=== PATIENT | male | born 1955 | race Caucasian/White ===

== ENCOUNTER 2019-08-23 09:20 | Outpatient (CLI) | payer BC, SELFPAY ==
--- NOTE | ~2019-08-23 | MR_ITS ---
EXAMINATION: MR cervical spine wo con DATE: 08/23/2019 10:48 INDICATION: Cervical radiculopathy. Bilateral shoulder pain and weakness. TECHNIQUE: Magnetic resonance imaging (MRI) of the cervical spine was performed without intravenous c ontrast. Sequences included sagittal T2-weighted FSE, sagittal T2-weighted FS FSE, sagittal T1-weight ed FSE, axial MERGE, and axial T2-weighted FSE. COMPARISON: None FINDINGS: There is 2 mm anterolisthesis of C5 on C6. Vertebral body heights and intervertebral disc h eights are normal. The spinal cord signal intensity is normal. The following disc levels are specific ally discussed: C2-C3: The disc does not extend beyond the endplate margin. There is no uncovertebral joint osteoarth ritis. There is moderate right and mild left facet joint osteoarthritis. There is no neural foraminal stenosis. There is no central canal stenosis. C3-C4: The disc does not extend beyond the endplate margin. There is no uncovertebral joint osteoarth ritis. There is mild bilateral facet joint osteoarthritis. There is no neural foraminal stenosis. The re is no central canal stenosis. C4-C5: The disc does not extend beyond the endplate margin. There is no uncovertebral joint osteoarth ritis. There is no facet joint osteoarthritis. There is no neural foraminal stenosis. There is no jose tral canal stenosis. C5-C6: The disc is bulging. There is moderate left uncovertebral joint osteoarthritis. There is mild bilateral facet joint osteoarthritis. There is mild left neural foraminal stenosis. There is mild jose tral canal stenosis. C6-C7: The disc does not extend beyond the endplate margin. There is no uncovertebral joint osteoarth ritis. There is mild left facet joint osteoarthritis. There is no neural foraminal stenosis. There is no central canal stenosis. C7-T1: The disc does not extend beyond the endplate margin. There is no uncovertebral joint osteoarth ritis. There is mild bilateral facet joint osteoarthritis. There is no neural foraminal stenosis. The re is no central canal stenosis. IMPRESSION: 1. Mild cervical spondylosis. Reviewed, dictated and finalized at location A.
--- NOTE | ~2019-08-23 | XR_ITS ---
EXAMINATION: XR finger 1st LT min 2V INDICATION: Left first finger pain TECHNIQUE: Three views of the left first finger are obtained. COMPARISON: None available FINDINGS: There is moderate to severe osteoarthritis at the first carpometacarpal joint. Mild osteoar thritis is noted in the visualized metacarpophalangeal joint and the triscaphe joint. There is no fra cture. The soft tissues are unremarkable. IMPRESSION: 1. Polyarticular osteoarthritis, worst at the first carpometacarpal joint. Reviewed, dictated and finalized at location A.
== END 2019-08-23 09:21 | disposition home or self-care (01) ==
PROVIDERS: Visit Provider Physician Assistant
DX: M47.22 Other spondylosis with radiculopathy, cervical region (principal); M18.12 Unilateral primary osteoarthritis of first carpometacarpal joint, left hand
CPT/HCPCS: 72141; 73140

== ENCOUNTER → 2019-12-11 13:14 | Outpatient (CLI) | payer BC, SELFPAY ==
--- NOTE | ~2019-12-11 | US_ITS ---
EXAMINATION: US scrotum doppler EXAM DATE: 12/11/2019 13:58 INDICATION: Blood chemistry abnormality, decreased testosterone. TECHNIQUE: Multiple grayscale and Doppler images of the testicles and scrotum were obtained bilateral ly. There is no prior study for comparison. FINDINGS: Right testicle measures 3.9 x 2.0 x 2.8 cm and is morphologically normal. Low resistance Doppler nicola w confirmed. The epididymis is unremarkable. There is a small varicocele. Left testicle measures 3.5 x 2.3 x 2.6 cm and is morphologically normal. Low resistance Doppler flow confirmed. The epididymis is unremarkable. There is no hydrocele or varicocele. IMPRESSION: 1. Small right varicocele. Reviewed, dictated and finalized at location A. IMPRESSION: 1. Small right varicocele.
== END ==
PROVIDERS: PCP Physician Assistant; Visit Provider Internal Medicine Endocrinology, Diabetes & Metabolism
DX: R79.89 Other specified abnormal findings of blood chemistry (principal); I86.1 Scrotal varices
CPT/HCPCS: 76870; 93976

== ENCOUNTER → 2019-12-11 13:17 | Outpatient (CLI) | payer BC, SELFPAY ==
--- NOTE | ~2019-12-11 | MR_ITS ---
EXAMINATION: MR thoracic spine wo con EXAM DATE: 12/11/2019 15:04 INDICATION: Intermittent mid back pain. TECHNIQUE: Multi-sequential, multiplanar MR images of the thoracic spine were obtained without contra st. Sagittal T1, T2, T2 fat saturation, axial T2 weighted images reviewed. There is no prior study for comparison. FINDINGS: The vertebral bodies are aligned in the AP dimension. There is mild to moderate diffuse tho racic disc disease. The vertebral body heights are relatively well-maintained. There are no focal mar row signal abnormalities suspicious for malignancy or acute fracture. The spinal cord signal intensit y and intrinsic morphology is normal. No central canal stenosis. There is moderate right neural fora cuate stenosis at T3-4 and T4-5, the most narrowed levels. Mild to moderate facet arthropathy. Parasp inal soft tissue is unremarkable. IMPRESSION: 1. Mild to moderate thoracic spondylosis. Reviewed, dictated and finalized at location A.
== END ==
PROVIDERS: PCP Physician Assistant; Visit Provider Physician Assistant
DX: M48.10 Ankylosing hyperostosis [Forestier], site unspecified (principal); M47.894 Other spondylosis, thoracic region
CPT/HCPCS: 72146

== ENCOUNTER 2020-03-18 12:36 | Outpatient (CLI) | payer BC, MEDICARE, SELFPAY ==
--- NOTE | ~2020-03-18 | XR_ITS ---
EXAMINATION: XR shoulder LT min 2V EXAM DATE: 03/18/2020 13:04 INDICATION: No known recent injury provided at this time. Pain of the left shoulder. TECHNIQUE: The following left shoulder projections obtained: frontal projection with internal rotatio n, frontal projection with external rotation, Grashey, and axillary (4+ views). Correlation is made t o Contralateral shoulder same date FINDINGS: No evidence of left shoulder rotator cuff calcific tendinosis. There is mild glenohumeral, moderate acromioclavicular joint primary osteoarthritis. There are no acute fractures or dislocation s identified. There is no subcutaneous gas. The soft tissue is unremarkable. There are no radiopa que foreign bodies. IMPRESSION: Mild to moderate left shoulder osteoarthritis. Reviewed, dictated and finalized at location A. O MAN
--- NOTE | ~2020-03-18 | XR_ITS ---
EXAMINATION: XR shoulder RT min 2V EXAM DATE: 03/18/2020 13:04 INDICATION: Bilateral shoulder pain. No known injury. TECHNIQUE: The following right shoulder projections obtained: frontal projection with internal rotati on, frontal projection with external rotation, Grashey, and axillary (4+ views). There is no prior s tudy for comparison. FINDINGS: No evidence of right shoulder rotator cuff calcific tendinosis. There is mild glenohumer al, moderate acromioclavicular joint primary osteoarthritis. There are no acute fractures or dislocat ions identified. There is no subcutaneous gas. The soft tissue is unremarkable. There are no radi opaque foreign bodies. IMPRESSION: Mild to moderate right shoulder osteoarthritis. Reviewed, dictated and finalized at location A. 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
== END 2020-03-18 12:37 | disposition home or self-care (01) ==
PROVIDERS: PCP Physician Assistant; Visit Provider Physician Assistant
DX: M19.011 Primary osteoarthritis, right shoulder (principal); M19.012 Primary osteoarthritis, left shoulder
CPT/HCPCS: 73030

== ENCOUNTER → 2021-04-09 10:06 | Outpatient (CLI) | payer BC, SELFPAY ==
--- NOTE | ~2021-04-09 | XR_ITS ---
EXAMINATION: XR sinus min 3V EXAM DATE: 04/09/2021 10:57 INDICATION: Maxillary sinus pain. Right facial pain and soreness. TECHNIQUE: Frontal, Jamila's, lateral projections of the paranasal sinuses. There are no prior studies for comparison. FINDINGS: Sinuses appear well aerated but please note that mild mucoperiosteal thickening not general ly detectable by this modality. There are no acute fractures identified. Orbital rims are intact. IMPRESSION: Sinuses appear well-aerated. Reviewed, dictated and finalized at location A. STIGATIVE AGENT
== END ==
PROVIDERS: PCP Physician Assistant; Visit Provider Physician Assistant
DX: R51.9 Headache, unspecified (principal)
CPT/HCPCS: 70220

== ENCOUNTER → 2022-04-08 08:12 | Outpatient (CLI) | payer MEDICARE, SELFPAY ==
--- NOTE | ~2022-04-08 | MR_ITS ---
EXAMINATION: MR shoulder LT wo con DATE: 04/08/2022 09:38 INDICATION: generalized left shoulder pain down arm x2yrs, no trauma/ca . TECHNIQUE: Magnetic resonance imaging (MRI) of the left shoulder was performed without intravenous co ntrast. Sequences included axial PD-weighted FS FSE, coronal oblique PD-weighted FS FSE and T2-weight ed FS FSE, and sagittal oblique T2-weighted FS FSE and T1-weighted FSE. COMPARISON: X-ray left shoulder 03/18/2020. FINDINGS: Coracoacromial arch: Moderate AC joint hypertrophy. Mild anterolateral downsloping of the type II acromion. Minimal acromi al tip enthesopathy. No significant subacromial or subcoracoid narrowing. Rotator cuff: Superior cuff tendinopathy. 4 mm partial-thickness articular surface tear of the anterior and distal fibers of the supraspinatus. Large cystic collection at the superior margin of the supraspinatus, pos sibly within the supraspinatus fascia and in communication with intrasubstance fluid. Thinning and pa rtial undersurface tearing of the distal fibers of the infraspinatus. Intrasubstance fluid signal at the musculotendinous junction. Teres minor and subscapularis are intact. Biceps tendon and glenoid labrum: Long head of biceps tendon is torn. Degenerative signal change in the glenoid labrum. Tear of the ant erior inferior glenoid labrum. Linear abnormal signal in the posteroinferior labrum with as an associ ated para labral cyst Fluid: Moderate subacromial subdeltoid fluid. Bones/cartilage: Subcortical cystic changes in the superior glenoid and superolateral aspect of the humeral head. IMPRESSION: 1. Partial-thickness and intrasubstance type tears of the supraspinatus. 2. Partial-thickness and intrasubstance tears of the infraspinatus. 3. Long head of biceps tendon tear. 4. Tears of the anteroinferior and posterior inferior labrum. 5. Moderate subacromial subdeltoid bursitis. Reviewed, dictated and finalized at location K. GER [employer]
== END ==
PROVIDERS: PCP Physician Assistant; Visit Provider Physician Assistant
DX: M25.512 Pain in left shoulder (principal); M75.112 Incomplete rotator cuff tear or rupture of left shoulder, not specified as traumatic; S46.112A Strain of muscle, fascia and tendon of long head of biceps, left arm, initial encounter; S43.432A Superior glenoid labrum lesion of left shoulder, initial encounter; M75.52 Bursitis of left shoulder
CPT/HCPCS: 73221

== ENCOUNTER 2022-12-21 00:35 | Day surgery (SDC) | payer MEDICARE, SELFPAY ==
[2022-12-11 15:15] VITALS: BMI 35.6
--- NOTE | 2022-12-20 17:09 | PM.HPGS ---
History of Present Illness History of Present Illness Consent: Risks, benefits, and alternatives have been discussed and questions answered. Patient agrees to proceed with procedure. Chief complaint: GERD Narrative: Johan Ledezma is a 67 year old male Referred for investigation of persistent acid reflux symptoms. His symptoms are worse when laying down. He does take pantoprazole 40 mg twice a day. Review of Systems Review of Systems: All systems reviewed & are unremarkable except as noted in HPI and below PMFSH Past Medical History Medical History Frequent PVCs Obesity MARIUM on CPAP Surgical History Surgical History History of esophagogastroduodenoscopy (EGD) Social History Social History Smoking status: Never smoker Alcohol intake: current Substance use: never Substance use type: does not use Living arrangements: with family Spiritual care concerns: No Meds Home Medications and Allergies Home Medications Medication Instructions Recorded Confirmed Type ascorbic acid (vitamin C) 100 mg 100 mg PO DAILY 12/11/22 12/21/22 History tablet (Vitamin C) aspirin 81 mg tablet 81 mg PO DAILY 12/11/22 12/21/22 History citalopram 20 mg tablet 20 mg PO DAILY 12/11/22 12/21/22 History dapagliflozin propanediol 10 mg 10 mg PO DAILY 12/11/22 12/21/22 History tablet (Farxiga) ferrous sulfate 325 mg (65 mg 325 mg PO DAILY 12/11/22 12/21/22 History iron) tablet glimepiride 1 mg tablet 1 mg PO DAILY PRN Hyperglycemia 12/11/22 12/21/22 History levothyroxine 100 mcg tablet 100 mcg PO DAILY 12/11/22 12/21/22 History losartan 100 1 tablet PO DAILY 12/11/22 12/21/22 History mg-hydrochlorothiazide 25 mg tablet magnesium 100 mg tablet 100 mg PO DAILY 12/11/22 12/21/22 History metformin 750 mg tablet,extended 750 mg PO TID 12/11/22 12/21/22 History release 24 hr multivitamin 1 tablet PO DAILY 12/11/22 12/21/22 History omega-3 fatty acids 1,000 mg PO BID 12/11/22 12/21/22 History pantoprazole 40 mg tablet,delayed 40 mg PO BID 12/11/22 12/21/22 History release rosuvastatin 20 mg tablet 20 mg PO DAILY 12/11/22 12/21/22 History semaglutide 1 mg/dose (4 mg/3 mL) 0.5 mg subcut WEEKLY 12/11/22 12/21/22 History subcutaneous pen injector (Ozempic) vitamin B complex 1 tablet PO DAILY 12/11/22 12/21/22 History vitamins A,C,B-uskc-pxlbmo 2,148 2 tablet PO BID 12/11/22 12/21/22 History mcg-113 mg-45 mg-17.4 mg tablet (PreserVision AREDS) acebutolol 200 mg capsule 200 mg PO BID 12/18/22 12/21/22 History Allergies Allergy/AdvReac Type Severity Reaction Status Date / Time Penicillins AdvReac Unknown RASH Verified 12/21/22 08:16 CHILD-STATES TAKEN PENICILLIN DERIVATIVES W/O RXN Exam Const: General: alert Orientation/consciousness: patient oriented x3 Resp: Auscultation: clear to auscultation bilaterally Cardio: Rhythm: regular rhythm GI: GI Palp: Yes Soft to palpation and No Tenderness to palpation present (GI) Neuro: General: patient oriented x3 Assessment and Plan Assessment and plan (1) GERD (gastroesophageal reflux disease): Code(s): K21.9 - Gastro-esophageal reflux disease without esophagitis Status: Acute Assessment and Plan: EGD with possible biopsy or dilatation or cautery.
[2022-12-21 08:18] VITALS: BP 134/81; PULSE 70; RESP 20; TEMP 36.6; O2SAT 98; BMI 35.1
[2022-12-21] MEDS: LACTATED RINGERS 1,000 ML 150 ML IV CONT (08:21)
--- NOTE | 2022-12-21 08:35 | WPDANESEPPF ---
Anes - Initial Pre Proc Eval Procedure: Operation Date: 12/21/22 09:30 Proposed Procedures p Esophagogastroduodenoscopy - Artis Singleton MD Date/Time: 12/21/22 08:35 Surgeon: Artis Singleton MD Pre Op Diagnosis: GERD Patient Data Age: 67 Gender: M Height: 1.78 m Weight: 111 kg Last Vital Signs Temp 36.6 C 12/21/22 08:18 Pulse 70 12/21/22 08:18 Resp 20 12/21/22 08:18 BP 134/81 12/21/22 08:18 Pulse Ox 98 12/21/22 08:18 O2 Del Method Room Air 12/21/22 08:18 Allergies Allergy/AdvReac Type Severity Reaction Status Date / Time Penicillins AdvReac Unknown RASH Verified 12/21/22 08:16 CHILD-STATES TAKEN PENICILLIN DERIVATIVES W/O RXN Home Medications Medication Instructions Recorded Confirmed Type ascorbic acid (vitamin C) 100 mg 100 mg PO DAILY 12/11/22 12/21/22 History tablet (Vitamin C) aspirin 81 mg tablet 81 mg PO DAILY 12/11/22 12/21/22 History citalopram 20 mg tablet 20 mg PO DAILY 12/11/22 12/21/22 History dapagliflozin propanediol 10 mg 10 mg PO DAILY 12/11/22 12/21/22 History tablet (Farxiga) ferrous sulfate 325 mg (65 mg 325 mg PO DAILY 12/11/22 12/21/22 History iron) tablet glimepiride 1 mg tablet 1 mg PO DAILY PRN Hyperglycemia 12/11/22 12/21/22 History levothyroxine 100 mcg tablet 100 mcg PO DAILY 12/11/22 12/21/22 History losartan 100 1 tablet PO DAILY 12/11/22 12/21/22 History mg-hydrochlorothiazide 25 mg tablet magnesium 100 mg tablet 100 mg PO DAILY 12/11/22 12/21/22 History metformin 750 mg tablet,extended 750 mg PO TID 12/11/22 12/21/22 History release 24 hr multivitamin 1 tablet PO DAILY 12/11/22 12/21/22 History omega-3 fatty acids 1,000 mg PO BID 12/11/22 12/21/22 History pantoprazole 40 mg tablet,delayed 40 mg PO BID 12/11/22 12/21/22 History release rosuvastatin 20 mg tablet 20 mg PO DAILY 12/11/22 12/21/22 History semaglutide 1 mg/dose (4 mg/3 mL) 0.5 mg subcut WEEKLY 12/11/22 12/21/22 History subcutaneous pen injector (Ozempic) vitamin B complex 1 tablet PO DAILY 12/11/22 12/21/22 History vitamins A,C,H-jrli-nnbqht 2,148 2 tablet PO BID 12/11/22 12/21/22 History mcg-113 mg-45 mg-17.4 mg tablet (PreserVision AREDS) acebutolol 200 mg capsule 200 mg PO BID 12/18/22 12/21/22 History Patient hx anesthesia problems: none Family hx anesthesia problems: none Results Review: All pre-operative results and documents have been reviewed as part of the pre-operative evaluation. [facility] Past Medical History Medical History (Updated 12/21/22 @ 08:38 by Hung Forbes MD) Frequent PVCs Obesity MARIUM on CPAP Surgical History Surgical History (Updated 12/21/22 @ 08:38 by Hung Forbes MD) History of esophagogastroduodenoscopy (EGD) Social History Social History (System 12/04/19 @ 13:03 by Lizbet France) Smoking status: Never smoker Alcohol intake: current Substance use: never Substance use type: does not use Living arrangements: with family Spiritual care concerns: No Anes - Eval Final PreProcedure Day of Procedure 12/21/22 08:35 Patient weight: obese Heart: regular rate and rhythm Lungs: clear to auscultation Airway: Mallampati scale class II Neurological: alert and oriented Last oral intake: >/= 8 hours ASA classification: III Anesthetic plan: proceed Anesthesia type and monitoring: general GIVS and standard monitoring Results Review: All pre-operative results and documents have been reviewed as part of the pre-operative evaluation. Informed Consent: The patient's anesthetic plan and its attendant risks and benefits were discussed with the patient/family/POA. Questions were solicited and answers provided to the satisfaction of the patient/family/POA.
[2022-12-21 08:38] LABS: Glucose Point of Care 91 mg/dl (65-105)
[2022-12-21 09:15] VITALS: BP 110/73; PULSE 75; RESP 25; O2SAT 98
[2022-12-21 09:25] VITALS: BP 108/73; PULSE 73; RESP 19; O2SAT 100
[2022-12-21 09:35] VITALS: BP 110/72; PULSE 72; RESP 19; O2SAT 100
== END 2022-12-21 09:40 | disposition home or self-care (01) ==
PROVIDERS: PCP Physician Assistant; Visit Provider Internal Medicine Gastroenterology
PROC: 0DJ08ZZ Inspection of Upper Intestinal Tract, Via Natural or Artificial Opening Endoscopic (ICD-10-PCS; CPT 43235; principal; 2022-12-21 09:30)
DX: K22.2 Esophageal obstruction (principal); K29.70 Gastritis, unspecified, without bleeding; K21.9 Gastro-esophageal reflux disease without esophagitis; G47.33 Obstructive sleep apnea (adult) (pediatric); E66.9 Obesity, unspecified; Z68.35 Body mass index [BMI] 35.0-35.9, adult; Z79.84 Long term (current) use of oral hypoglycemic drugs; Z79.899 Other long term (current) drug therapy
CPT/HCPCS: 43239; 43249; 82948; 88305; C1726; J2704; J7120

== ENCOUNTER 2024-03-01 07:20 | Outpatient (CLI) | payer MEDICARE, SELFPAY ==
--- NOTE | ~2024-03-01 | MR_ITS ---
MRI of the lumbar spine Clinical History: History of lumbar spine surgery Technique: Axial T2-weighted images, and sagittal T1-weighted, T2-weighted, and STIR images were acqu ired. Findings: There is 9 mm anterolisthesis of L4 over L5. There is posterior fusion from L4 to L5, bilat eral rods and transpedicular screws present at these levels. There is prior posterior decompression a t L4 and L5. No suspicious bone marrow signal abnormality seen. At L1-L2, there is minimal disc bulge. There is advanced facet arthropathy. No central canal stenosis or neural foraminal narrowing. At L2-L3, there is moderate degenerative disc narrowing. There is mild disc bulge with advanced facet arthropathy. No central canal stenosis or definite neural foraminal narrowing. At L3-L4, there is moderate to advanced degenerative disc narrowing. There is diffuse disc bulge and severe facet arthropathy. There is moderate central canal stenosis/thecal sac compression. There is s evere bilateral neural foraminal narrowing. At L4-L5, there is advanced degenerative disc narrowing. No central canal stenosis, prior posterior d ecompression. There is probable moderate to advanced bilateral neural foraminal narrowing. At L5-S1, there is no significant disc bulge or herniation. There is severe facet arthropathy with pr ior posterior decompression. No central canal stenosis. Neural foramina are preserved. Probable small postoperative seroma posteriorly at the operative bed. No other significant soft tissu e reality seen in the paravertebral regions. Impression: Postoperative changes related to posterior L4-L5 fusion with underlying 9 mm anterolisthesis of L4 ov er L5. Moderate degenerative spondylosis otherwise, with multilevel neural foraminal narrowing. There is mod erate canal stenosis/thecal sac compression L3-L4. Reviewed, dictated and finalized at [facility]. TZ ORIENTATOR Impression: Postoperative changes related to posterior L4-L5 fusion with underlying 9 mm an terolisthesis of L4 over L5. Moderate degenerative spondylosis otherwise, with multilevel neural foraminal n arrowing. There is moderate canal stenosis/thecal sac compression L3-L4.
--- NOTE | ~2024-03-01 | XR_ITS ---
XR hip LT min 2V DATE: 03/01/2024 07:38 INDICATION: Left hip pain TECHNIQUE: AP and lateral views COMPARISON: 06/01/2016 left FINDINGS: No fracture or dislocation, avascular necrosis or bone destruction is evident. IMPRESSION: No significant abnormality Reviewed, dictated and finalized at location A. IMPRESSION: No significant abnormality
== END 2024-03-01 07:21 | disposition home or self-care (01) ==
PROVIDERS: PCP Physician Assistant; Visit Provider Physician Assistant
DX: M43.16 Spondylolisthesis, lumbar region (principal); M47.816 Spondylosis without myelopathy or radiculopathy, lumbar region; M48.061 Spinal stenosis, lumbar region without neurogenic claudication; M25.552 Pain in left hip; Z98.1 Arthrodesis status
CPT/HCPCS: 72148; 73502

== ENCOUNTER 2024-09-16 01:20 | Day surgery (SDC) | payer MEDICARE, SELFPAY ==
[2024-09-05 13:16] VITALS: BMI 37.3
--- OUTSIDE RECORDS SUMMARY | 2024-09-16 01:22 | XMS_ITS | Encounter Summary ---
Author Organization [facility] Address 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 Gender Identity Not on file Sexual Orientation Not on file documented as of this encounter Plan of Treatment Not on file documented as of this encounter Procedures Procedure Name Priority Date/Time Associated Diagnosis Comments PATHOLOGY Routine 12/20/2007 12:52 PM CDT documented in this encounter Results * PATHOLOGY (12/20/2007 12:52 PM CDT) FINAL REPORT [address] [address] Patient: JOHAN MOSQUEDA : 1955 Procedure Date: 12/20/2007 Accession Date: 12/20/2007 Case No: 1- [id number] Ordering Dr: ALAN ROSA Case types AW, BW, FW, NW and SH are performed by [facility] [place], [place], [place] SURGICAL PATHOLOGY & NON-GYNECOLOGIC CYTOPATHOLOGY REPORT DIAGNOSIS STOMACH, ENDOSCOPIC BIOPSY: - CYSTIC FUNDIC GLAND POLYPS. ESOPHAGUS, MID, ENDOSCOPIC BIOPSY: - NO PATHOLOGIC DIAGNOSIS. Specimen Description: (1) Gastric polyps; (2) mid esophagus biopsy. Operative Procedure: EGD. Patient Information/Histo ry/Diagnosis: (1) Gastric polyp(s). (2) Rule out eosinophilic esophagitis. Gross: Two containers are received labeled Johan Lizzymengshahzadtanner. The first specimen is received in a container labeled gastric polyps. It consists of six pieces of smith tissue ranging from 0.2 to 0.4 cm in greatest dimension. The specimen is submitted entirely labeled A1. The second specimen is received in a container labeled mid esophagus . It consists of two pieces of translucent smith tissue, each measuring 0.2 cm in greatest dimension. The specimen is submitted entirely labeled B1. KLA/TERRELL 12.20.2007 02:34 pm Microscopic: The slides are labeled [id number], Johan Mosqueda. The gastric biopsy consists of body-type mucosa. Dilated glands are lined by a combination of mucous, chief and parietal cells. There is no evidence of adenomatous change or significant inflammation. The biopsy from the mid-esophagus consists of unremarkable-appe aring squamous-surface d mucosa. There is no evidence of inflammation, atypia, or reactive epithelial change. No eosinophils are present. KHF/PETER 12.23.2007 10:35 am Staging Form: No. ELECTRONIC SIGNATURE FOR MAXIMILIAN GANDHI M.D.- 12/23/07 05:17 pm INTERFACE SYSTEM 12/20/2007 12:5 2 PM CDT Alan Rosa MD PATHOLOGY/CYTOLOGY ORDERABLES Final Result INTERFACE SYSTEM Refer to clinic/hospital department documented in this encounter Visit Diagnoses Diagnosis Dysphagia, unspecified(787.20) Dysphagia, unspecified documented in this encounter Care Teams Automobile Repossessor Relationship Specialty Start Date End Date Alan Ibanez MD [address] [place] [id number] PCP - General 04/26/03 documented as of this encounter
--- OUTSIDE RECORDS SUMMARY | 2024-09-16 01:22 | XMS_ITS | Continuity of Care Document ---
Author Organization formerly [facility] Address [address] [place] [address] Phone Care Team Providers Care Jewel Bearing Maker Name Role Phone Cheryl Serrano Unavailable Unavailable Procedures Procedure Date Office/outpatient Visit, Est No Charge Glasses Check Eye Exam & Treatment Refraction Eye Exam & Treatment Refraction Advance Directives Directive Yes / No Effective Date File Name No Information Encounters Encounter Description Practice Location Reason(s) For Visit Diagnoses Date Provider Providers Copied on Encounter Office/outpat ient Visit, Est [facility], [address] [place] [address] [address], [place], [place], [id number], [place] tel:[phone] [facility] No Information 0 Maggie Luna. [address] [facility] [address] , [address], [place], [address], [place]. tel:[phone] Referring Provider: Cheryl Hoffmann, [facility] [address], [place], [place], [facility]. tel:[phone] [facility], [address] [place] [address] [address], [place], [place], [id number], [place] tel:[phone] [facility] No Information [phone] Maggie Luna. [address] [facility] , [address], [place], [address], [place]. tel:[phone] [facility], [address] [place] [address] [address], [place], [place], [id number], [place] tel:[phone] [facility] No Information [phone] 9 Maggie Luna. [address] [facility] [address] , [address], [place], [address], [place]. tel:[phone] [facility], [address], [place], [place], [id number], [place] tel:[phone] [facility] No Information 3200 8 Maggie Luna. [address] [facility] , [address], [place], [address], [place]. tel:[phone] Family History Family Member Type Diagnosis Age At Onset No Information Payers Payer name Insurance type Covered libertarian ID Authorara wilson(s) [facility] [id number] Social History Type Description Quantity Date Captured Comments Sex Male Smoking Status No Information Chief Complaint And Reason For Visit No Information Reason For Referral Reason For Referral No Information History Of Present Illness Encounter Date Complaint History Of Prese nt Illness No Information Functional Status Date Functional Assessmen t No Information Instructions Date Instruction Additional Infor mation No Information Assessments Type Assessment Date No Information Patient Care Teams Name Effective Dates (start - stop) Status Members No Information
--- OUTSIDE RECORDS SUMMARY | 2024-09-16 01:22 | XMS_ITS | Encounter Summary ---
Author Organization [facility] Address 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 Gender Identity Not on file Sexual Orientation Not on file documented as of this encounter Plan of Treatment Not on file documented as of this encounter Procedures Procedure Name Priority Date/Time Associated Diagnosis Comments MRI THORACIC W WO CONTRAST Timed Study 01/28/2008 7:59 AM CDT POC CREATININE Routine 01/28/2008 7:34 AM CDT documented in this encounter Results * MRI THORACIC W WO CONTRAST (01/28/2008 7:59 AM CDT) Anatomical Region Laterality Modality Spine Other 01/28/2008 7:59 AM CDT Narrative 01/28/2008 10:16 AM CDT [address] [address] Admit Date: 01/28/2008 JOHAN MOSQUEDA Sex: Autumn Admit Prov: ALAN VALENCIA Date: 1955 Primary Care Prov: ALAN VALENCIA CMRN: [id number] [facility] N: [address] [place] [address] IMAGING SERVICES Ordering Prov: N/A Accession Number: [id number] Interpretation MRI THORACIC SPINE WITH AND WITHOUT IV CONTRAST JAN 28, 2008 7:59:24 AM History: Back pain radiating between shoulder blades, history of previous injury Findings: The thoracic spine is normally aligned. Marrow signal is within normal limits. There is no evidence of compression deformity. Disc height is maintained. The thoracic cord is normal in size and signal. There is no obvious central canal or foraminal stenosis. No abnormal enhancement is present. Marrow signal is within normal limits. There is a left lateral osteophyte inferiorly at T1 without foraminal stenosis. No disc herniations are seen. Several scattered anterior marginal osteophytes are present. IMPRESSION: Unremarkable thoracic MRI with no evidence of compressive cord or nerve root pathology. . Dictated by: LUIS PERALTA 01/28/2008 09:08 Electronically signed by: LUIS PERALTA 01/28/2008 10:15 Transcribed: 01/28/2008 10:00 Procedure Note Luis Peralta - 01/28/[address] [address] Admit Date: 01/28/2008 LUKASZ MOSQUEDA Sex: M Admit Prov: ALAN VALENCIA Date: 1955 Primary Care Prov: ALAN VALENCIA CMRN: [id number] [facility] N[facility] [address] [place] [address] IMAGING SERVICES Ordering Prov: N/A Interpretation MRI THORACIC SPINE WITH AND WITHOUT IV CONTRAST JAN 28, 20087:59:24 AM History: Back pain radiating between shoulder blades, history ofprevious injury Findings: The thoracic spine is normally aligned. Marrow signal iswithin normal limits. There is no evidence of compression deformity. Discheight is maintained. The thoracic cord is normal in size and signal. Thereis no obvious central canal or foraminal stenosis. No abnormal enhancementis present. Marrow signal is within normal limits. There is a leftlateral osteophyte inferiorly at T1 without foraminal stenosis. No discherniations are seen. Several scattered anterior marginal osteophytes arepresent. IMPRESSION: Unremarkable thoracic MRI with no evidence of compressive cord ornerve root pathology. . Dictated by: LUIS PERALTA 01/28/2008 09:08 Electronically signed by: LUIS PERALTA 01/28/2008 10:15 Transcribed: 01/28/2008 10:00 Alan Valencia MD MR ORDERABLES Final Result * POC CREATININE (01/28/2008 7:34 AM CDT) CREATININE POC 1.0 0.6 - 1.3 mg/dL [facility] GFR, >60 >=60 mL/min/1.7 sq meter [facility] GFR >60 >=60 mL/min/1.7 sq meter [facility] Capillary blood specimen (specimen) 01/28/2008 7:34 AM CDT 01/28/2008 7:34 AM CDT Alan Valencia MD POINT OF CARE TESTING Edited INTERFACE SYSTEM Refer to clinic/hospital department [facility] CLIA# [id number] [address] [place] [address] documented in this encounter Visit Diagnoses Diagnosis Palpitations documented in this encounter Care Teams Commercial Housekeeper Relationship Specialty Start Date End Date Alan Valencia MD [address] [facility] [address] [place] [address] PCP - General 04/26/03 documented as of this encounter
--- OUTSIDE RECORDS SUMMARY | 2024-09-16 01:22 | XMS_ITS | Encounter Summary ---
Author Organization [facility] Address 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
--- OUTSIDE RECORDS SUMMARY | 2024-09-16 01:22 | XMS_ITS | Encounter Summary ---
Author Organization [facility] Address 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
--- OUTSIDE RECORDS SUMMARY | 2024-09-16 01:22 | XMS_ITS | Clinical Summary ---
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 Gender Identity Not on file Sexual Orientation Not on file Plan of Treatment Health Maintenance Due Date Last Done Comments DTAP/TDAP/TD VACCINES (1 - Tdap) 1973 COLORECTAL SCREENING 1999 Colorectal Cancer Screening 1999 FIT-DNA Q 3 years 1999 FIT/FOBT Q 1 year 1999 Flex Sig/CT Colonography Q 5 years 1999 PNEUMOCOCCAL VACCINE 50+ YEARS (1 of 1 - PCV) 03/01/20 04 ZOSTER VACCINE (1 of 2) 2004 INFLUENZA VACCINE (#1) 2023 RSV VACCINE (60+ or ) (1 - 1-dose 75+ series) 2029 Insurance BLUE ACCESS/TRUE BLUE PPO Care Teams Director Of Home Health Services Relationship Specialty Start Date End Date Oscar Ibanez MD [facility] [address] [address] PCP - General 04/26/03
--- OUTSIDE RECORDS SUMMARY | 2024-09-16 01:22 | XMS_ITS | Referral Summary ---
Author Organization [facility] Address [address] [place] [address] Care Team Providers Care It Security Project Manager Name Role Phone Oscar Ibanez MD Unavailable [phone] Cecily Hernandez Primary Care Pr ovider Allergies Active Allergy Reactions Criticality Noted Date Comments Penicillins Rash Medium 09/19/2017 Medications metFORMIN XR (GLUCOPHAGE XR) 750 mg 24 hr tablet Take 750 mg by mouth 3 (three) times a day. Active levothyroxine (SYNTHROID, LEVOTHROID) 100 mcg tablet Take 100 mcg by mouth walking dragline oiler before breakfast. Active allopurinol (ZYLOPRIM) 300 mg tablet Take 300 mg by mouth daily. Active citalopram (CeleXA) 20 mg tablet Take 20 mg by mouth daily. Active tadalafil (CIALIS) 5 mg tablet Take 5 mg by mouth daily. Active pantoprazole DR (PROTONIX) 40 mg EC tablet Take 40 mg by mouth 2 (two) times a day. Active multivitamin capsule Take 1 capsule by mouth daily. Active omega 0-hhw-lbt-fish oil 60-90-500 mg capsule Take 1 capsule by mouth every morning. Active b complex vitamins capsule Take 1 capsule by mouth daily. Active rosuvastatin (CRESTOR) 10 mg tablet Take 20 mg by mouth daily. Active HYDROcodone-joaquim taminophen (NORCO) 7.5-325 mg per tabletIndicatio ns:Pain Take 1 tablet by mouth as needed for pain. Active cetirizine-pseu doephedrine ER (ZyrTEC-D) 5-120 mg per 12 hr tablet Take 1 tablet by mouth 2 (two) times a day. Active traZODone (DESYREL) 50 mg tablet Take 50 mg by mouth nightly. Active ascorbic acid (vitamin C) 1,000 mg tablet Take 1,000 mg by mouth daily. Active B-complex with vitamin C tabletIndicatio ns:Vitamin Deficiency Prevention Take 1 tablet by mouth daily. Active iron,carbonyl-v itamin C 65 mg iron- 125 mg tablet,delayed release (DR/EC) Take by mouth. Active ferrous sulfate ER 324 mg (65 mg iron) EC tabletIndicatio ns:Iron Deficiency Anemia Take 65 mg by mouth daily with breakfast. Active aspirin 81 mg tablet Take 1 tablet (81 mg total) by mouth daily. 10/06/2017 Active losartan-hydroc hlorothiazide (HYZAAR) 100-25 mg per tablet Take 1 tablet by mouth daily. Active acebutoloL (SECTRAL) 200 mg capsule Take 200 mg by mouth 2 (two) times a day Active canagliflozin (INVOKANA) 300 mg tabletIndicatio ns:type 2 diabetes mellitus Take 300 mg by mouth daily Active icosapent ethyl (VASCEPA ORAL) Take 2 tablets by mouth 2 (two) times a day Active semaglutide (Ozempic) 0.25 mg or 0.5 mg(2 mg/1.5 mL) pen injector Inject 0.5 mg under the skin once a week Active Active Problems Problem Noted Date Diagnosed Date Status post lumbar spinal fusion 09/16/2019 Assessment & Plan (09/15/2020 3:47 PM CDT): Mr. Mosqueda is clinically doing well after posterior lumbar decompression and fusion. We will discharge him from clinic at this point, but I would be happy to see him back at any point in the future if problems arise. Assessment & Plan (09/16/2019 4:09 PM CDT): Mr. Mosqueda is improved after lumbar decompression fusion at L4-5. He had some worsening of symptoms after an injury at work in April. This is subsequently improved. I plan to see him back in one year's time with AP and lateral lumbar spine films at that time. Right shoulder pain 09/16/2019 Assessment & Plan (09/16/2019 4:09 PM CDT): Mr. Mosqueda has right shoulder pain and proximal arm pain with weakness in external rotation of his right shoulder. This seems orthopedic in nature. The MRI of his cervical spine does not show any spinal cord or nerve root compression. He does have some flattening of the spinal cord throughout the cervical spine with plenty of CSF seen circumferentially throughout the entire distance. Thoracic spine pain 09/16/2019 Assessment & Plan (09/16/2019 4:10 PM CDT): Mr. Mosqueda has thoracic pain intermittently at about the T5 level. The exact etiology of this is unclear. He reports that he is at multiple x-rays of the spine in the past the did not show anything. He has never undergone an MRI of the thoracic spine. He does not show any signs of myelopathy and we discussed the surgery on the thoracic spine has significant morbidity. As such, we will hold off on any workup of this. He will try massage therapy to his lower cervical spine and thoracic spine. Low back pain, non-specific 10/17/2018 Assessment & Plan (10/17/2018 1:32 PM CDT): Mr. Mosqueda has no low back pain since of were consistent in April of 2018. He reports that the terrible pains in his legs are gone after the operation. He does have some buttock and posterior leg ache that is new since the accident. He does not seem to have a definite radicular component. His fusion seems to be healing well. There is no listhesis above or below this. I plan to see him back in 1 year's time with AP and lateral lumbar spine films at that time. Resolved Problems Problem Noted Date Diagnosed Date Resolved Date Lumbar stenosis 05/02/2018 09/16/2019 Assessment & Plan (05/02/2018 1:15 PM INCOME TAX RETURN PREPARER): Mr. Mosqueda is doing well after lumbar decompression and fusion. He had recurrence of back pain in January which has subsequently resolved. He has no radicular symptoms. We discussed weight loss which would likely help with his back pain and diffuse joint pains. He has some mild piriformis stretch signs. I have shown him some stretches to do at home. Pain is seen back in 6 months with AP and lateral lumbar spine films at the time. Social History Tobacco Use Types Packs/Day Years Used Date Smoking Tobacco: Never Smokeless Tobacco: Never Alcohol Use Standard Drinks/Week Comments Yes 0 (1 standard drink = 0.6 oz pur e alcohol) 2-4 per week PHQ-2 Answer Date Recorded PHQ-2 Score 0 07/06/2018 Sex and Gender Information Value Date Recorded Sex Assigned at Not on file Legal Sex Male 12:12 PM INCOME TAX RETURN PREPARER Gender Identity Not on file Sexual Orientation Not on file Last Filed Vital Signs Vital Sign Reading Time Taken Comments Blood Pressure 118/68 09/15/2020 1:14 PM CDT Pulse 83 09/15/2020 1:14 PM CDT Temperature 36.6 C (97.8 F) 03/15/2018 7:00 AM INCOME TAX RETURN PREPARER Respiratory Rate 12 09/15/2020 1:14 PM CDT Oxygen Saturation 96% 03/15/2018 7:00 AM INCOME TAX RETURN PREPARER Inhaled Oxygen Concentration - - Weight 122.2 kg (269 lb 6.4 oz) 09/15/2020 1:14 PM CDT Height 177.8 cm (5' 10 ) 09/15/2020 1:14 PM CDT Body Mass Index 38.65 09/15/2020 1:14 PM CDT Plan of Treatment Not on file Medical Devices Implanted Type Area Dental Assistant Instructor Device Identifier Shelf Expiration Date Model / Serial / Lot Screw Bone Holcomb L45 Mm Od7 Mm Spine Pedicle Nonsterile 5500 Series - [id number] Implanted:Qty: 4 on 10/05/2017 by Derrick English MD at [facility] N/A: Back Core Link [id number] / / Screw Set Holcomb 5500 Series - [id number] Implanted:Qty: 4 on 10/05/2017 by Derrick English MD at [facility] N/A: Back Core Link [id number] / / Spencer Spinal Holcomb L40 Mm Od5.5 Mm Prebent Line 5500 Series - [id number] Implanted:Qty: 2 on 10/05/2017 by Derrick English MD at [facility] N/A: Back Core Link [id number] / / Insurance [employer] OOS MEDICARE Advance Directives For more information, please contact: [phone] * Full Code (Latest Code Status on File) Date Activated Date Inactivated Comments 10/05/2017 12:06 PM 10/06/2017 3:17 PM Care Teams It Security Project Manager Relationship Specialty Start Date End Date Cecily Hernandez PA [address] [facility] [address] [place] [address] PCP - General 11/21/17 Oscar Ibanez MD [address] [facility] [address] [place] [address] Consulting Physician Internal Medicine 10/05/17
--- OUTSIDE RECORDS SUMMARY | 2024-09-16 01:22 | XMS_ITS | Encounter Summary ---
Author Organization [facility] Address 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 Gender Identity Not on file Sexual Orientation Not on file documented as of this encounter Plan of Treatment Not on file documented as of this encounter Procedures Procedure Name Priority Date/Time Associated Diagnosis Comments NM MYOCARDIAL PERFUSION EF Routine 01/21/2008 7:15 AM CDT documented in this encounter Results * NM MYOCARDIAL PERFUSION EF (01/21/2008 7:15 AM CDT) 01/21/2008 7:15 AM CDT Narrative INTERFACE SYSTEM - 01/21/2008 10:58 AM CDT [address] [address] Admit Date: 01/21/2008 JOHAN MOSQUEDA Sex: M Admit Prov: ALAN VALENCIA Date: 1955 Primary Care Prov: ALAN VALENCIA CMRN: [id number] [facility] SSN: [id number] IMAGING SERVICES Ordering Prov: N/A Accession Number: [id number] Interpretation Date of Procedure: January 21, 2008: Procedure Type: One day Myoview Lexiscan Stress Test Clinical Indications:This 52 year old male was undergoing an evaluation for complications and is undergoing a pharmacologic stress test due to inability to exercise adequately Medications: none listed Pharmacologic Stress Procedure: The patient performed a chemical stress test with low exercise using 0.4 mg of Lexiscan administered IV over 10 seconds. The heart rate was 72 bpm at baseline and increased to 96 bpm which was 71 % of the maximum predicted heart rate. The blood pressure was 122 / 67 at baseline and 106 / 66 during the test, demonstrating a hypotensive response to Lexiscan.The patient symptoms included abdominal pressure during the procedure. EKG: The baseline electrocardiogram showed sinus rhythm with minor nonspecific ST/T abnormalities. The stress electrocardiogram showed no significant ST segment depressions .The electrocardiogram changes demonstrate a nonischemic response . Nuclear Imaging Protocol: Myocardial perfusion imaging was performed at rest approximately 60 minutes following the intravenous injection of 12.700 mCi of TC99m Myoview . Twenty seconds after the Lexiscan was injected 47.00 of TC99m Myoview were injected. Gated post - stress tomographic imaging was performed approximately 60 minutes later in same manner. SPECT reconstruction was performed in the short, vertical long and horizontal axis views in both resting and gated image sets. Findings: Evaluation of the rotating planar images and spect images reveal adequate quality. Post stress SPECT images demonstrate normal perfusion in all regions. The rest images reveal no reversibility. Gated SPECT imaging demonstrates normal wall motion in all regions with a left ventricular ejection fraction calculated to be 69 %. Impression: 1) EKG stress test is negative. 2) The overall quality of the study is adequate. 3) The myocardial perfusion scan is normal . 4) Left ventricular size is normal with normal systolic thickening with normal systolic function. 5) No previous study was available for comparison. Recommendations: Clinical correlation is recommended. . Dictated by: NARDA HEART 01/21/2008 10:53 Electronically signed by: NARDA HEART 01/21/2008 10:57 Procedure Note Narda Heart MD - 09/23/2008 [facility] [address] [place], [place] [address] Admit Date: 01/21/2008 LUKASZ MOSQUEDA Sex: M Admit Prov: ALAN VALENCIA Date: 1955 Primary Care Prov: ALAN VALENCIA CMRN: [id number] [facility] SSN: [address] [place] [address] IMAGING SERVICES Ordering Prov: N/A Interpretation Date of Procedure: January 21, 2008: Procedure Type: One day Myoview Lexiscan Stress Test Clinical Indications:This 52 year old male was undergoing anevaluation for complications and is undergoing a pharmacologic stress test due to inability to exercise adequately Medications: none listed Pharmacologic Stress Procedure: The patient performed a chemical stress test with low exercise using0.4 mg of Lexiscan administered IV over 10 seconds. The heart rate was72 bpm at baseline and increased to 96 bpm which was 71 % of the maximum predicted heart rate. The blood pressure was 122 / 67 at baseline [id number] / 66 during the test, demonstrating a hypotensive response toLexiscan.The patient symptoms included abdominal pressure during the procedure. EKG: The baseline electrocardiogram showed sinus rhythm with minornonspecific ST/T abnormalities. The stress electrocardiogram showed nosignificant ST segment depressions .The electrocardiogram changes demonstrate a nonischemic response . Nuclear Imaging Protocol: Myocardial perfusion imaging was performed at rest approximately 60minutes following the intravenous injection of 12.700 mCi of TC99m Myoview. Twenty seconds after the Lexiscan was injected 47.00 of [id number] were injected. Gated post - stress tomographic imaging was performed approximately 60 minutes later in same manner. SPECT reconstructionwas performed in the short, vertical long and horizontal axis views inboth resting and gated image sets. Findings: Evaluation of the rotating planar images and spect images revealadequate quality. Post stress SPECT images demonstrate normal perfusion in all regions.The rest images reveal no reversibility. Gated SPECT imaging demonstrates normal wall motion in all regionswith a left ventricular ejection fraction calculated to be 69 %. Impression: 1) EKG stress test is negative. 2) The overall quality of the study is adequate. 3) The myocardial perfusion scan is normal . 4) Left ventricular size is normal with normal systolic thickeningwith normal systolic function. 5) No previous study was available for comparison. Recommendations: Clinical correlation is recommended. . Dictated by: NARDA HEART 01/21/2008 10:53 Electronically signed by: NARDA HEART 01/21/2008 10:57 us Alan Valencia MD NM ORDERABLES Final Result INTERFACE SYSTEM Refer to clinic/hospital department documented in this encounter Visit Diagnoses Diagnosis Palpitations documented in this encounter Care Teams Leather Finisher Relationship Specialty Start Date End Date Alan Valencia MD [address] [place] [address] PCP - General 04/26/03 documented as of this encounter
--- OUTSIDE RECORDS SUMMARY | 2024-09-16 01:22 | XMS_ITS | Clinical Summary ---
Author Organization [facility] Address [address] [place] [address] Care Team Providers Care Molten Iron Pourer Name Role Phone Oscar Ibanez MD Unavailable [phone] Cecily Hernandez Primary Care Pr ovider Allergies Active Allergy Reactions Criticality Noted Date Comments Penicillins Rash Medium 09/19/2017 Medications metFORMIN XR (GLUCOPHAGE XR) 750 mg 24 hr tablet Take 750 mg by mouth 3 (three) times a day. Active levothyroxine (SYNTHROID, LEVOTHROID) 100 mcg tablet Take 100 mcg by mouth overlay operator before breakfast. Active allopurinol (ZYLOPRIM) 300 mg [...] 1 capsule by mouth daily. Active omega 1-gsd-ngi-fish oil 60-90-500 mg capsule Take 1 capsule [...] 09/16/2019 Assessment & Plan (05/02/2018 1:15 PM ROOFING TECHNICIAN): Mr. Mosqueda is doing well after lumbar [...] lateral lumbar spine films at the time. Surgical History Surgery Date Site/Laterality Comments TONSILLECTOMY INGUINAL HERNIA REPAIR Left LITHOTRIPSY several POSTERIOR FUSION LUMBAR SPINE 04/30/2017 - 04/29/2018 S/P L4-5 PSF ([place]) Medical History Medical History Date Comments Lumbar stenosis Nephrolithiasis Diabetes mellitus (HCC) GERD (gastroesophageal reflux disease) Hypertension Hypothyroidism Depression BPH (benign prostatic hyperplasia) Dyslipidemia Gout Erectile dysfunction Morbid obesity with BMI of 40.0-44.9, adult (HCC ) BMI 42 Sleep apnea compliant with C PAP Family History Medical History Relation Name Comments Coronary artery disease Father Coronary artery disease Mother Relation Name Status Comments Father Mother Social History Tobacco Use Types Packs/Day Years Used Date Smoking Tobacco: Never Smokeless Tobacco: Never Alcohol Use Standard Drinks/Week Comments Yes 0 (1 standard drink = 0.6 oz pur e alcohol) 2-4 per week PHQ-2 Answer Date Recorded PHQ-2 Score 0 07/06/2018 Sex and Gender Information Value Date Recorded Sex Assigned at Not on file Legal Sex Male 12:12 PM ROOFING TECHNICIAN Gender Identity Not on file Sexual Orientation Not on file Obstetrics History Last Filed Vital Signs Vital Sign Reading Time Taken Comments Blood Pressure 118/68 09/15/2020 1:14 PM CDT Pulse 83 09/15/2020 1:14 PM CDT Temperature 36.6 C (97.8 F) 03/15/2018 7:00 AM ROOFING TECHNICIAN Respiratory Rate 12 09/15/2020 1:14 PM CDT Oxygen Saturation 96% 03/15/2018 7:00 AM ROOFING TECHNICIAN Inhaled Oxygen Concentration - - Weight 122.2 kg (269 lb 6.4 oz) 09/15/2020 1:14 PM CDT Height 177.8 cm (5' 10 ) 09/15/2020 1:14 PM CDT Body Mass Index 38.65 09/15/2020 1:14 PM CDT Plan of Treatment Not on file Medical Devices Implanted Type Area Code Official Device Identifier Shelf Expiration Date Model / Serial / Lot Screw Bone Harris L45 Mm Od7 Mm Spine Pedicle Nonsterile 5500 Series - [id number] Implanted:Qty: 4 on 10/05/2017 by Derrick English MD at [facility] N/A: Back Core Link [id number] / / Screw Set Harris 5500 Series - [id number] Implanted:Qty: 4 on 10/05/2017 by Derrick English MD at [facility] N/A: Back Core Link [id number] / / Spencer Spinal Harris L40 Mm Od5.5 Mm Prebent Line 5500 Series - [id number] Implanted:Qty: 2 on 10/05/2017 by Derrick English MD at [facility] N/A: Back Core Link [id number] / / Insurance ITC [employer] OOS Member Subscriber Plan / Payer (Ef fective 2008-Present) Name:Johan Mosqueda Relation to Subscriber:Spouse Name:TOM MOSQUEDA Date of :1955 (Home) Address: [address] [place] [address] Payer ID:[id number] (NAIC) Type:BC ALLIANCE Address: [address] [place] [id number] MEDICARE Advance Directives For more information, please contact: [phone] * Full Code (Latest Code Status on File) Date Activated Date Inactivated Comments 10/05/2017 12:06 PM 10/06/2017 3:17 PM Care Teams Molten Iron Pourer Relationship Specialty Start Date End Date Cecily Hernandez PA [address] [place] [address] PCP - General 11/21/17 Oscar Ibanez MD [address] [place] [address] Consulting Physician Internal Medicine 10/05/17
--- OUTSIDE RECORDS SUMMARY | 2024-09-16 01:22 | XMS_ITS | Encounter Summary ---
Author Organization [facility] Address 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
--- OUTSIDE RECORDS SUMMARY | 2024-09-16 01:23 | XMS_ITS | Encounter Summary ---
Author Organization [facility] Address 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
--- OUTSIDE RECORDS SUMMARY | 2024-09-16 01:23 | XMS_ITS | Encounter Summary ---
Author Organization [facility] Address 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
--- OUTSIDE RECORDS SUMMARY | 2024-09-16 01:23 | XMS_ITS | Encounter Summary ---
Author Organization [facility] Address [address] [place] [address] Care Team Providers Care Fluoroscope Operator Name Role Phone Oscar Ibanez MD Primary Care Provider [phone] Encounter Details Date Type Department Care Team (Late st Contact Info) Description 12/28/2004 Outpatient Historical [facility] Ildefonso Alcantara MD NO ADDRESS ON FILE Er, Authorized P NO ADDRESS ON FILE CALCULUS OF URETER (Primary Dx) Social History Tobacco Use Types Packs/Day Years Used Date Smoking Tobacco: Never Assessed Sex and Gender Information Value Date Recorded Sex Assigned at Not on file Legal Sex Male 3:00 AM UNIVERSITY RELATIONS RECRUITER Gender Identity Not on file Sexual Orientation Not on file documented as of this encounter Plan of Treatment Not on file documented as of this encounter Procedures Procedure Name Priority Date/Time Associated Diagnosis Comments ED HOLD Routine 12/28/2004 9:40 PM CDT CBC WITH DIFFERENTIAL Routine 12/28/2004 9:40 PM CDT CBC WITH DIFFERENTIAL Routine 12/28/2004 9:40 PM CDT documented in this encounter Results * ED HOLD (12/28/2004 9:40 PM CDT) SPECIMEN HOLD, BLOOD 7 days INTERFACE SYSTEM 12/28/2004 9:40 PM CDT us Ildefonso Alcantara MD CHEMISTRY ORDERABLES Final R esult INTERFACE SYSTEM Refer to clinic/hospital department * (ABNORMAL) CBC WITH DIFFERENTIAL (12/28/2004 9:40 PM CDT) NEUTROPHILS 85(H) 45 - 70 % INTERFAC E SYSTEM LYMPHOCYTES 9(L) 16 - 45 % INTERFAC E SYSTEM MONOCYTES 6 3 - 13 % INTERFACE SYSTEM EOSINOPHILS 0 0 - 7 % INTERFAC E SYSTEM BASOPHILS 0 0 - 2 % INTERFACE SYSTEM NEUTROPHIL ABSOLUTE 12.40(H) 1.90 - 7.00 K/uL INTERFACE SYSTEM LYMPHOCYTE ABSOLUTE 1.25 0.70 - 4.50 K/uL INTERFACE SYSTEM MONOCYTE ABSOLUTE 0.84 0.10 - 1.30 K/uL INTERFACE SYSTEM EOSINOPHIL ABSOLUTE 0.01 0.00 - 0.70 K/uL INTERFACE SYSTEM BASOPHILS ABSOLUTE 0.02 0.00 - 0.20 K/uL INTERFACE SYSTEM 12/28/2004 9:40 PM CDT Ildefonso Alcantara MD HEMATOLOGY ORDERABLES Final Result Performing Organization Address City/State/[facility] Phone Number INTERFACE SYSTEM Refer to clinic/hospital department * (ABNORMAL) CBC WITH DIFFERENTIAL (12/28/2004 9:40 PM CDT) WBC 14.5(H) 4.0 - 9.8 K/uL INTERFACE SYSTEM RBC 4.13(L) 4.50 - 5.40 M/uL INTERFACE SYSTEM HEMOGLOBIN 14.5 13.6 - 16.5 g/dL INTERFACE SYSTEM HEMATOCRIT 41.8 40.0 - 48.0 % INTERFACE SYSTEM MCV 101.2(H) 82.0 - 99.0 fL INTERFACE SYSTEM MCH 35.1(H) 27.2 - 32.6 pg INTERFACE SYSTEM MCHC 34.7 31.5 - 35.5 % INTERFACE SYSTEM RDW 14.0 11.5 - 14.5 % INTERFACE SYSTEM RDW-STDEV 52.2(H) 37.1 - 48.7 fL INTERFACE SYSTEM PLATELETS 184 140 - 350 K/uL INTERFACE SYSTEM MPV 11.0 9.3 - 12.4 fL INTERFACE SYSTEM 12/28/2004 9:40 PM CDT Ildefonso Alcantara MD HEMATOLOGY ORDERABLES Final Result INTERFACE SYSTEM Refer to clinic/hospital department documented in this encounter Visit Diagnoses Diagnosis Calculus of ureter- Primary documented in this encounter Care Teams Fluoroscope Operator Relationship Specialty Start Date End Date Oscar Ibanez MD [address] [address] PCP - General 04/26/03 documented as of this encounter
--- OUTSIDE RECORDS SUMMARY | 2024-09-16 01:23 | XMS_ITS | Encounter Summary ---
Author Organization [facility] Address 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
--- OUTSIDE RECORDS SUMMARY | 2024-09-16 01:23 | XMS_ITS | Encounter Summary ---
Author Organization [facility] Address [address] [place] [address] Care Team Providers Care Certified Novell Engineer Name Role Phone Oscar Ibanez MD Primary Care Provider [phone] Encounter Details Date Type Department Care Team (Latest Contact Info) Description 04/29/2003 Outpatient Historical [facility] Edinson Choudhury MD [address] [place] [address] UNILAT ING HERNIA W OBST (Primary Dx) Social History Tobacco Use Types Packs/Day Years Used Date Smoking Tobacco: Never Assessed Sex and Gender Information Value Date Recorded Sex Assigned at Not on file Legal Sex Male 3:00 AM CARDIAC MONITOR TECHNICIAN Gender Identity Not on file Sexual Orientation Not on file documented as of this encounter Plan of Treatment Not on file documented as of this encounter Visit Diagnoses Diagnosis Inguinal hernia with obstruction, without mention of gangrene, unilateral or unspecified, (not specified as recurrent)- Primary documented in this encounter Care Teams Certified Novell Engineer Relationship Specialty Start Date End Date Oscar Ibanez MD [address] [place] [id number] PCP - General 04/26/03 documented as of this encounter
--- OUTSIDE RECORDS SUMMARY | 2024-09-16 01:23 | XMS_ITS | Encounter Summary ---
Author Organization [facility] Address [address] [place] [address] Care Team Providers Care Clay Modeler Name Role Phone Oscar Ibanez MD Primary Care Provider [phone] Encounter Details Date Type Department Care Team (Latest Contact Info) Description 01/03/2005 Outpatient Historical [facility] [place], Johan Beavers MD [address] [place], [place] [phone] CALCULUS OF KIDNEY (Primary Dx) Social History Tobacco Use Types Packs/Day Years Used Date Smoking Tobacco: Never Assessed Sex and Gender Information Value Date Recorded Sex Assigned at Not on file Legal Sex Male 3:00 AM 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
--- OUTSIDE RECORDS SUMMARY | 2024-09-16 01:23 | XMS_ITS | Encounter Summary ---
Author Organization [facility] Address [address] [place] [address] Care Team Providers Care Still Operator Helper Name Role Phone Oscar Ibanez MD Primary Care Provider [phone] Encounter Details Date Type Department Care Team (Late st Contact Info) Description 04/29/[address] [facility] Support Serv. ([facility]) [address] [place] [phone] Oscar Vicente MD [address] [facility] [address] [place] [address] Social History Tobacco Use Types Packs/Day Years Used Date Smoking Tobacco: Never Assessed Sex and Gender Information Value Date Recorded Sex Assigned at Not on file Legal Sex Male 3:00 AM STERILE TECHNICIAN Gender Identity Not on file Sexual Orientation Not on file documented as of this encounter Plan of Treatment Not on file documented as of this encounter Visit Diagnoses Not on filedocumented in this encounter Care Teams Still Operator Helper Relationship Specialty Start Date End Date Oscar Ibanez MD [address] [facility] [address] [place], [place] [phone] PCP - General 04/26/03 documented as of this encounter
--- OUTSIDE RECORDS SUMMARY | 2024-09-16 01:24 | XMS_ITS | Encounter Summary ---
Author Organization [facility] Address [address] [facility] [place] [address] Care Team Providers Care Fly Maker Name Role Phone Unavailable Primary Care Provider Unavailabl e Encounter Details Date Type Department Care Team (Late st Contact Info) Description 07/25/2023 Lab Requisition [facility] - DermPath Lab [address] [facility] [place] [id number] Amie Conn DO [address] [place] [address] Social History Tobacco Use Types Packs/Day Years Used Date Smoking Tobacco: Never Assessed Sex and Gender Information Value Date Recorded Sex Assigned at Not on file Legal Sex Male 6:15 AM [employer] Gender Identity Not on file Sexual Orientation Not on file documented as of this encounter Plan of Treatment Not on file documented as of this encounter Procedures Procedure Name Priority Date/Time Associated Diagnosis Comments DERMATOPATHOLOGY Routine 07/25/2023 2:03 PM CDT documented in this encounter Results * DERMATOPATHOLOGY (07/25/2023 2:03 PM CDT) Case Report Dermatopathology Report Case: [id number] Authorizing Provider: Amie Conn DO Collected: 07/25/2023 02:03 PM Ordering Location: [facility] - Received: 07/26/2023 11:12 AM DermPath Lab Pathologist: Autumn Bustamante MD Specimen: Skin, columella 12:58 PM CDT DERMATOPATHOLOGY LABORATORY Final Diagnosis Specimen A. SKIN, columella: RUPTURED EPIDERMOID CYST (L72.0) 12:58 PM CDT DERMATOPATHOLOGY LABORATORY at 1258 CDT Clinical History LCS vs PN vs Acanthoma Fissuratum vs NMSC vs other 12:58 PM CDT DERMATOPATHOLOGY LABORATORY Gross Description Specimen A: Received is one formalin filled container labeled with the patient's name and designated columella. The specimen consists of a two pieces shave biopsy measuring 7x4x1, 4x2x2 mm. Jar 0. 12:58 PM CDT DERMATOPATHOLOGY LABORATORY Microscopic Description Specimen A. SKIN, columella: Within the dermis, there is an infiltrate composed of lymphocytes and histiocytes, including multinucleated type giant cells. Some histiocytes contain flakes of material consistent with keratin. 12:58 PM CDT DERMATOPATHOLOGY LABORATORY Disclaimer An external and internal positive and negative controls are appropriate for the histochemical, immunohistochemical and immunofluorescence stain(s) in this case (if any), except where stated explicitly. The performance characteristics of the stain(s) cited in this report were developed and its performance characteristic determined by the Dermatopathology Laboratory at [facility], directed by Dr. Kyra Bustamante. These tests need not be, and therefore are not, approved by the [place] Food and Drug Administration. The tests are used for clinical purposes. Billing Codes Specimen Charges Stain Charges 74581 1 12:58 PM CDT DERMATOPATHOLOGY LABORATORY Embedded Images 12:58 PM CDT DERMATOPATHOLOGY LABORATORY Pathology/Cytolo gy TISSUE SPECIMEN FROM SKIN / Unknown 07/25/2023 2:03 PM CDT 07/26/2023 11:12 AM CDT us Amie Conn DO LAB - PATHOLOGY/CYTOLOGY ORDERABLES Final Result DERMATOPATHOLOGY LABORATORY [facility] - Department of Dermatology [address] [place] [address], [facility] [phone] documented in this encounter Visit Diagnoses Not on filedocumented in this encounter
--- OUTSIDE RECORDS SUMMARY | 2024-09-16 01:24 | XMS_ITS | CONTINUITY OF CARE DOCUMENT ---
Author Name mary, mary Address Unknown Organization [facility] Address [address] [place] [address] Phone [phone] Care Team Providers Care Perinatal Technician Name Role Phone Wiliam HERNANDEZ, Marco Unavailable PATO BROOKS MD Unavailable CAMILA HUNTER Unavailable PROBLEMS Condition Status Date Provider Notes Diastolic dysfunction active Kana Bedolla MD Hyperlipidemia active Nancy Gruenenfelder Fatigue completed - Kana Bedolla MD Hypertension;neg duplex active Kana crawford MD did not want rpm Obesity active Kana Bedolla MD Diabetes mellitus active Kana Bedolla MD Spinal stenosis active Kana Bedolla MD Renal calculus active Kana Bedolla MD Gout active Kana Bedolla MD Anemia completed - Kana Bedolla MD SLEEP APNEA;ON CPAP active Kana Bedolla MD Diverticulosis, colon active Kana Bedolla MD Low testosterone level completed 1 - Alfredo Raineymedzai GERD active Kana Bedolla MD Hypothyroidism active Kana Bedolla MD Palpitations completed - Kana Bedolla MD tsh ok on rx FAMILY HISTORY OF HEART DISEASE active Kana Bedolla MD Abnormal cardiolite stress test completed - Kana Bedolla MD Screening completed - Alfredo Mueller PVC's active Kana Bedolla MD Anemia of chronic disease;with macrocyosis active Kana Bedolla MD Hypertriglyceridemia active Kana arana aford vascape Chest pain active Alfredo Mueller Dyspnea on exertion--nl stress nuc, 12/2022 active Alfredo Mueller Cardiology examination active Alfredo Mueller ENCOUNTERS Date Type Provider Location Encounter Diag nosis - In-person encounter Office Visit Maroc Swain MD [facility] Cardiology examination - In-person encounter Office Visit Marco Swain MD [facility] - In-person encounter Office Visit Marco Swain MD [facility] - In-person encounter Office Visit Marco Swain MD [facility] Low testosterone levelScreeningChest painDyspnea on exertion--nl stress nuc, 12/2022 - In-person encounter Office Visit Marco Swain MD [facility] - In-person encounter Office Visit Kana Bedolla MD [facility] Hypertension;neg duplexHypertriglyceride caitlyn - In-person encounter Office Visit Kana Bedolla MD [facility] - In-person encounter Office Visit Kana Bedolla MD [facility] - In-person encounter Office Visit Kana Bedolla MD [facility] - In-person encounter Office Visit Kana Bedolla MD [facility] FatigueAnemiaSLEEP APNEA;ON CPAPPalpitationsAbnormal cardiolite stress testPVC'sAnemia of chronic disease;with macrocyosisHypertriglyceridemia - In-person encounter Office Visit Kana Bedolla MD [facility] Screening - In-person encounter Office Visit Kana Bedolla MD [facility] ObesityDiabetes mellitusSpinal stenosisR enal calculusGoutSLEEP APNEA;ON CPAPDiverticulosis, colonGERDHypothyroidismPalpitationsFAMILY HISTORY OF HEART DISEASE VITAL SIGNS Date Observation Value Provider Body Mass Index (Ratio) 37.73 kg/m2 Jose Swain MD blood pressure, diastolic 78 mm[Hg] eMlanie Rodriguez blood pressure, systolic 131 mm[Hg] Brittany Rodriguez oxygen saturation, oximetry 94 % Ana Rodriguez pulse rate 83 /min Ana Rodriguez respiratory rate E&M 12 /min [facility] weight E&M 263 [lb_av] Ana Rodriguez height E&M 70 [in_i] [facility] blood pressure, cuff size regular dacia Rodriguez Body Mass Index (Ratio) 37.59 kg/m2 Jose Swain MD oxygen saturation, oximetry 96 % Alfredo Mueller blood pressure, diastolic 78 mm[Hg] Ri az Ami blood pressure, systolic 122 mm[Hg] Gwen lacho Mueller weight E&M 262 [lb_av] Alfredo Mueller Body Mass Index (Ratio) 37.59 kg/m2 Jose Swain MD pulse rate 81 /min Deanna Graham oxygen saturation, oximetry 99 % Deanna Graham respiratory rate E&M 15 /min Deanna mayo weight E&M 262 [lb_av] Deanna Graham height E&M 70 [in_i] Deanna Graham Body Mass Index (Ratio) 35.72 kg/m2 Jose Swain MD blood pressure, cuff size regular Wale rret blood pressure, diastolic 71 mm[Hg] Ja rret blood pressure, systolic 123 mm[Hg] [facility] pulse rate 75 /min Ede respiratory rate E&M 12 /min Ede oxygen saturation, oximetry 97 % Ede weight E&M 249 [lb_av] Ede y height E&M 70 [in_i] Ede sheldon Body Mass Index (Ratio) 35.44 kg/m2 Jose Swain MD blood pressure, diastolic 83 mm[Hg] regina Falcon blood pressure, systolic 139 mm[Hg] [facility] anne Falcon oxygen saturation, oximetry 96 % Marjorie Falcon respiratory rate E&M 18 /min Marjorie Falcon pulse rate 77 /min Marjorie Falcon blood pressure, cuff size regular regina Falcon weight E&M 247 [lb_av] Marjorie Falcon height E&M 70 [in_i] Marjorie Falcon Body Mass Index (Ratio) 34.00 kg/m2 Katie Bedolla MD blood pressure, cuff size regular Wale Rodriguez RN blood pressure, diastolic 72 mm[Hg] Wale Rodriguez RN blood pressure, systolic 128 mm[Hg] Adi Rodriguez RN oxygen saturation, oximetry 97 % Adi Rodriguez RN respiratory rate E&M 20 /min Adi galvan RN pulse rate 83 /min Adi Rodriguez RN weight E&M 237 [lb_av] Adi Rodriguez RN Body Mass Index (Ratio) 34.72 kg/m2 Katie Bedolla MD blood pressure, diastolic -1 mm[Hg] Swetha [facility] blood pressure, systolic 117 mm[Hg] Yuli [facility] blood pressure, diastolic 71 mm[Hg] Sa ra Gaspar blood pressure, systolic 117 mm[Hg] Regina a Gaspar oxygen saturation, oximetry 99 % Monika Gaspar respiratory rate E&M 18 /min Monika Si ms pulse rate 83 /min Monika Gaspar blood pressure, cuff size regular Sa ra Gaspar weight E&M 242 [lb_av] Monika Gaspar height E&M 70 [in_i] Monika Gaspar Body Mass Index (Ratio) 39.45 kg/m2 Katie Bedolla MD blood pressure, cuff size large Ke rri Sherrie blood pressure, diastolic 80 mm[Hg] Ke rri Sherrie blood pressure, systolic 138 mm[Hg] Evon Balderas oxygen saturation, oximetry 98 % Nancy Balderas respiratory rate E&M 18 /min Nancy iglesias pulse rate 82 /min Nancy Odell er weight E&M 275 [lb_av] Nancy Odell lder height E&M 70 [in_i] Nancy Odell er Body Mass Index (Ratio) 39.60 kg/m2 Katie Bedolla MD blood pressure, resting Yes Tons warren Allen respiratory rate E&M 16 /min Tonsha Allen blood pressure, diastolic 74 mm[Hg] To nsha Allen pulse rate 76 /min Tonsha Allen blood pressure, systolic 132 mm[Hg] Leopoldo [facility] oxygen saturation, oximetry 96 % Tons Allen weight E&M 276 [lb_av] Tons Allen height E&M 70 [in_i] Tons Allen Body Mass Index (Ratio) 40.43 kg/m2 Katie Bedolla MD blood pressure, diastolic 68 mm[Hg] Chuyita Rivera blood pressure, systolic 121 mm[Hg] Eden Rivera oxygen saturation, oximetry 98 % Matt Rivera respiratory rate E&M 18 /min JodiSusan Rivera pulse rate 82 /min Matt Steve danielleon weight E&M 281.8 [lb_av] Matt Alphonse myrna height E&M 70 [in_i] Matt Garcia aman Body Mass Index (Ratio) 41.49 kg/m2 Katie Bedolla MD blood pressure, diastolic 72 mm[Hg] Chuyita Rivera blood pressure, systolic 123 mm[Hg] Eden Rivera oxygen saturation, oximetry 97 % Matt Rivera respiratory rate E&M 18 /min JodiSusan godoy Rivera pulse rate 71 /min Matt Garcia danielleon weight E&M 289.2 [lb_av] Matt Cunha myrna height E&M 70 [in_i] Matt Garcia danielleon blood pressure, diastolic 60 mm[Hg] Chuyita Rivera blood pressure, systolic 124 mm[Hg] Eden Rivera pulse rate 86 /min Matt Garcia daniellejuan antonio oxygen saturation, oximetry 98 % Matt Rivera respiratory rate E&M 18 /min Shaq Rivera Body Mass Index (Ratio) 42.29 kg/m2 Jodi Rivera weight E&M 294.8 [lb_av] Matt norris height E&M 70 [in_i] Matt newton ALLERGIES Allergy Name Onset Date Reaction Criticality Status PENICILLIN High Criticality active RESULTS Date Observation Value Provider Reference Range Interpretation Location ferritin, serum 157 ng/mL [facility] 20-380 Normal NT-pro BNP 45 [facility] prothrombin time (patient) 10.9 s [facility] 9.0-11.5 Normal international normalized ratio (INR) 1.0 [facility] Normal PTT patient 27 s [facility] 22-34 Normal calcium, serum 9.9 mg/dL [facility] 8.6-10.3 Normal carbon dioxide, venous blood 28 mmol/L [facility] 20-31 Normal chloride, serum 104 mmol/L [facility] 98-110 Normal potassium, serum 4.4 mmol/L [facility] 3.5-5.3 Normal sodium, serum 140 mmol/L [facility] 135-146 Normal urea nitrogen/creatini ne ratio, serum NOT APPLICABLE (calc) [facility] 6-22 Estimated Glomerular Filtration Rate (calc) 104 mL/min/{1.73_m 2} [facility] > OR = 60 Normal creatinine, serum 0.91 mg/dL [facility] 0.70-1.25 Normal urea nitrogen, blood 21 mg/dL [facility] 7-25 Normal blood glucose, random 94 mg/dL [facility] 65-99 Normal iron saturation percent, serum 31 % (CALC) [facility] 15-60 Normal iron binding capacity, total 310 MCG/DL (CALC) [facility] 250-425 Normal iron, serum 96 ug/dL [facility] 50-180 Normal HISTORY OF MEDICATION USE Medication Status Instructions Dates Provider Indications Com ments trazodone 100 mg tablet active Take 1 tablet by mouth every night Alfredo Mueller carvedilol 25 mg tablet active TAKE 1 TABLET BY MOUTH TWICE A DAY carvedilol 25 mg tablet completed TAKE 1 TABLET BY MOUTH TWICE DAILY - Ede acebutolol 200 mg capsule completed TAKE 1 CAPSULE TWICE DAILY - Irenekrista Benitez acebutolol 400 mg capsule completed 1 capsule by mouth twice a day TAKE 1 CAPSULE TWICE DAILY - Nancy Balderas Ozempic 1 mg/dose (4 mg/3 mL) pen injector active 1 mg subcutaneously once a week Alfredo Mueller Ozempic 1 mg/dose (4 mg/3 mL) pen injector completed 1 mg subcutaneously once a week - Kana Bedolla MD Farxiga 10 mg tablet active Kana Bedolla MD alprazolam 0.5 mg tablet active Kana Bedolla MD acebutolol 200 mg capsule completed TAKE 1 CAPSULE TWICE DAILY - Kana Bedolla MD Farxiga unspecified unspecified completed - Kana Bedolla MD acebutolol 200 mg capsule completed TAKE 1 CAPSULE BY MOUTH TWICE A DAY - Nancy Balderas acebutolol 200 mg capsule completed Take 1 capsule by mouth twice a day TAKE 1 CAPSULE TWICE A DAY - Adi Rodriguez RN Vascepa 1 gram capsule completed Take 2 capsule by mouth twice a day - Kana Bedolla MD acebutolol 200 mg capsule completed TAKE 1 CAPSULE TWICE A DAY - Kana Bedolla MD glimepiride 1 mg tablet completed Take 1 as needed - Kana Bedolla MD Ozempic 0.25 mg or 0.5 mg(2 mg/1.5 mL) pen injector completed 1/2 once a week - Kana Bedolla MD acebutolol 200 mg capsule completed Take 1 capsule twice a day - Michael Ferreira Vascepa 1 gram capsule completed Take 2 capsule twice a day - Kana Bedolla MD Crestor 20 mg tablet active 1 tablet once a day Kana Bedolla MD cholecalciferol (vitamin D3) 125 mcg (5,000 unit) tablet completed 1 tablet by mouth once a day - Matt Rivera ropinirole 1 mg tablet completed 1 tablet once a day - Matt Rivera losartan-hydrochl orothiazide 100-25 mg tablet active 1 tablet once a day Matt Rivera Invokana 300 mg tablet completed once a day - Nancy Balderas QSYMIA 7.5-46 MG ORAL CAPSULE EXTENDED RELEASE 24 HOUR completed one tablet daily - Matt Rivera QSYMIA 3.75-23 MG ORAL CAPSULE EXTENDED RELEASE 24 HOUR completed one tablet daily - Matt Rivera IBUPROFEN 200 MG ORAL CAPSULE completed 2-4 tabs 1-2 times daily as needed - Matt Rivera aspirin 81 mg tablet,delayed release (DR/EC) active 1 tablet by mouth once a day Adi Rodriguez RN ferrous sulfate 325 mg (65 mg iron) tablet active once a day Adi Rodriguez RN OMEGA 3-6-9 ORAL CAPSULE completed one tab daily - aKna Bedolla MD vitamin B complex tablet completed capsule once a day - Adi Rodriguez RN VITAMIN C TABLET completed 1000mg daily - Matt Rivera MULTIVITAMIN ADULT TABS completed once a day - Adi Rodriguez RN Cialis 5 mg tablet completed 1 tablet once a day - Adi Rodriguez RN TRAZODONE HCL 50 MG TABS completed 2 tablet once a day - Matt Rivera KETOCONAZOLE 2 % EXTERNAL CREAM completed as needed - Matt Rivera CETIRIZINE-PSEUDO EPHEDRINE ER 5-120 MG ORAL TABLET EXTENDED RELEASE 12 HOUR completed twice daily - Matt Rivera ANDROGEL 40.5 MG/2.5GM (1.62%) TRANSDERMAL GEL completed one pump daily - Matt Rivera levothyroxine 100 mcg tablet active 1 tablet once a day Adi Rodriguez RN citalopram 40 mg tablet completed 1 tablet once a day - Adi Rodriguez RN CRESTOR 10 MG ORAL TABLET completed ONE TAB. DAILY - Matt Rivera pantoprazole 40 mg tablet,delayed release (DR/EC) completed 1 tablet twice a day - Adi Rodriguez RN CARVEDILOL 12.5 MG ORAL TABLET completed one tab twice a day - Kana Bedolla MD allopurinol 300 mg tablet completed 1 tablet once a day - Adi Rodriguez RN VALSARTAN-HYDROCH LOROTHIAZIDE 320-25 MG ORAL TABLET completed one tab daily - Matt Rivera metformin (Glucophage XR) 500 mg tablet extended release 24 hr active 2 twice a day Alfredo Mueller SOCIAL HISTORY Date Observation Value Provider smoking status Never smoker Alfredo Mueller smoking status Never smoker Alfredo Mueller smoking status Never smoker Alfredo Mueller social history reviewed E&M revi ewed - no changes required Alfredo Mueller social history reviewed E&M revi ewed - no changes required Irene Benitez social history E&M S moking History: Bony mckinney has never smoked. Irene Benitez smoking status Never smoker Marjorie Falcon social history E&M Smoking Histo ry: P hank has never smoked. Kana Bedolla MD social history reviewed E&M revi ewed - no changes required Kana Bedolla MD smoking status Never smoker Nancy ibrahim social history E&M S moking History: P attez has never smoked. Kana Bedolla MD social history reviewed E&M revi ewed - no changes required Kana Bedolla MD smoking status Never smoker Dino Allen social history E&M S moking History: P attez has never smoked. Kana Bedolla MD social history reviewed E&M revi ewed - no changes required Kana Bedolla MD smoking status Never smoker Matt Brewster social history E&M S moking History: Bony mckinney has never smoked. Kana Bedolla MD social history reviewed E&M revi ewed - no changes required Kana Bedolla MD smoking status Never smoker Matt Brewster social history E&M S moking History: Bony mckinney has never smoked. Kana Bedolla MD social history reviewed E&M revi ewed - no changes required Kana Bedolla MD smoking status Never smoker Matt Brewster FAMILY HISTORY Family Member Condition Father Family History of Co ronary Artery Disease: Mother Family History of Co ronary Artery Disease: Mother Family History of Di abetes: INSURANCE PROVIDERS Payer name Policy type / Coverage type [employer] red republican ID [employer] web care [employer] [id number] [place] MED[place] Medicare [id number] ADVANCE DIRECTIVES Name Date DISCUSSED - NO DECISION MADE TREATMENT PLAN Date Name Performer [id number],Alfredo Monet i [id number],Alfredo Monet i [id number],Alfredo Monet i [id number],Alfredo Monetmedza i [id number],S, [facility] [id number],S, [facility] [id number],S, [facility] [id number],S, [facility] [id number],S, [facility] [id number],S, [facility] [id number],S, [facility] [id number],S, [facility] [id number],S, [facility] [id number],S, [facility] [id number],S, [facility] [id number],S, [facility] [id number],S, [facility] [id number],S, [facility] [id number],S, [facility] [id number],B, Marco Swain MD [id number],B, Marco Swain MD [id number],B, Marco Swain MD [id number],B, Marco Swain MD [id number],B, H is updated medication list for this problem includes: Crestor 20 Mg Tablet (Rosuvastatin) ..... 1 tablet once a day Kana Bedolla MD [id number],S, Kana crawford MD [id number],S, Kana crawford MD [id number],S, Kana crawford MD [id number],SKana MD [id number],B, r educed by sabi Bedolla MD [id number],S, N EG EHCO AND UACR z ero maria dolores and neg cor cta, pos nuc , neg iron and pro bnp, c b 12 and folate ok, nml d, nmlpsa Kana Bedolla MD [id number],W, H is updated medication list for this problem includes: Acebutolol 200 Mg Capsule (Acebutolol) ..... Take 1 capsule twice daily Losartan-hydrochlorothiazide 100-25 Mg Tablet (Losartan-hydrochlorothiazide) ..... 1 tablet once a day Aspirin 81 Mg Tablet,delayed Release (dr/ec) (Aspirin) ..... 1 tablet by mouth once a day BP today: 128/72 P rior BP: 117/-1 (07/06/2021) Labs Reviewed: C reat: 0.91 (11/09/2016) Kana Bedolla MD [id number],S, 5 .5 Kana Bedolla MD [id number],SKana MD [id number],S, Kana crawford MD [id number],S, H is updated medication list for this problem includes: Acebutolol 200 Mg Capsule (Acebutolol) ..... Take 1 capsule by mouth twice a day Losartan-hydrochlorothiazide 100-25 Mg Tablet (Losartan-hydrochlorothiazide) ..... 1 tablet once a day Aspirin 81 Mg Tablet,delayed Release (dr/ec) (Aspirin) ..... 1 tablet by mouth once a day BP today: 117/71 P rior BP: 138/80 (05/12/2020) Labs Reviewed: C reat: 0.91 (11/09/2016) Kana Bedolla MD [id number],S, Kana crawford MD [id number],S, Kana crawford MD [id number],S, Kana crawford MD [id number],B,reduced by ac ebutoal Kana Bedolla MD [id number],S, N EG EHCO AND UACR z ero maria dolores and neg cor cta, neg iron and pro bnp, pos nuc b 12 and folate ok, nml d, nmlpsa Kana Bedolla MD [id number],B, Kana crawford MD [id number],B, Kana crawford MD [id number],B,5.5 Kana blackman MD Cardiology:The patie nt is using CPAP on a regular basis. The patient has been benefiting from therapy and should continue use. Marco Swain MD Cardiology: H is updated medication list for this problem includes: Crestor 20 Mg Tablet (Rosuvastatin) ..... 1 tablet once a day Marco Swain MD Cardiology: H is updated medication list for this problem includes: Ozempic 1 Mg/dose (4 Mg/3 Ml) Pen Injector (Semaglutide) ..... 1 mg subcutaneously once a week Metformin (glucophage Xr) 500 Mg Tablet Extended Release 24 Hr (Metformin (glucophage xr)) ..... 2 twice a day Farxiga 10 Mg Tablet (Dapagliflozin) Losartan-hydrochlorothiazide 100-25 Mg Tablet (Losartan-hydrochlorothiazide) ..... 1 tablet once a day Aspirin 81 Mg Tablet,delayed Release (dr/ec) (Aspirin) ..... 1 tablet by mouth once a day Marco Swain MD Cardiology:This visi t has been a part of the consistent, comprehensive, and ongoing management of the chronic medical condition(s) listed above for the patient. BP today: 131/78 P rior BP: 122/78 (11/13/2023) Labs Reviewed: Thanh reat: 0.91 (11/09/2016) His updated medication list for this problem includes: Carvedilol 25 Mg Tablet (Carvedilol) ..... Take 1 tablet by mouth twice a day Losartan-hydrochlorothiazide 100-25 Mg Tablet (Losartan-hydrochlorothiazide) ..... 1 tablet once a day Aspirin 81 Mg Tablet,delayed Release (dr/ec) (Aspirin) ..... 1 tablet by mouth once a day Marco Swain MD Cardiology Marco Swain MD Cardiology Marco Swain MD Cardiology:This visi t has been a part of the consistent, comprehensive, and ongoing management of the chronic medical condition(s) listed above for the patient. Prior BP: 123/71 (01/02/2023) L abs Reviewed: Thanh reat: 0.91 (11/09/2016) His updated medication list for this problem includes: Carvedilol 25 Mg Tablet (Carvedilol) ..... Take 1 tablet by mouth twice a day Losartan-hydrochlorothiazide 100-25 Mg Tablet (Losartan-hydrochlorothiazide) ..... 1 tablet once a day Aspirin 81 Mg Tablet,delayed Release (dr/ec) (Aspirin) ..... 1 tablet by mouth once a day Marco Swain MD Cardiology: H is updated medication list for this problem includes: Ozempic 1 Mg/dose (4 Mg/3 Ml) Pen Injector (Semaglutide) ..... 1 mg subcutaneously once a week Farxiga 10 Mg Tablet (Dapagliflozin) Metformin 750 Mg Tablet Extended Release 24 Hr (Metformin) ..... 3 twice a day Losartan-hydrochlorothiazide 100-25 Mg Tablet (Losartan-hydrochlorothiazide) ..... 1 tablet once a day Aspirin 81 Mg Tablet,delayed Release (dr/ec) (Aspirin) ..... 1 tablet by mouth once a day Alfredo Mueller Cardiology: H is updated medication list for this problem includes: Carvedilol 25 Mg Tablet (Carvedilol) ..... Take 1 tablet by mouth twice a day Aspirin 81 Mg Tablet,delayed Release (dr/ec) (Aspirin) ..... 1 tablet by mouth once a day [facility] Cardiology [facility] Cardiology: P rior BP: 123/71 (01/02/2023) Labs Reviewed: C reat: 0.91 (11/09/2016) His updated medication list for this problem includes: Carvedilol 25 Mg Tablet (Carvedilol) ..... Take 1 tablet by mouth twice a day Losartan-hydrochlorothiazide 100-25 Mg Tablet (Losartan-hydrochlorothiazide) ..... 1 tablet once a day Aspirin 81 Mg Tablet,delayed Release (dr/ec) (Aspirin) ..... 1 tablet by mouth once a day [facility] Cardiology [facility] Cardiology [facility] Cardiology [facility] Cardiology [facility] Cardiology [facility] Cardiology [facility] Cardiology: P rior BP: 123/71 (01/02/2023) Labs Reviewed: C reat: 0.91 (11/09/2016) His updated medication list for this problem includes: Carvedilol 25 Mg Tablet (Carvedilol) ..... Take 1 tablet by mouth twice daily Losartan-hydrochlorothiazide 100-25 Mg Tablet (Losartan-hydrochlorothiazide) ..... 1 tablet once a day Aspirin 81 Mg Tablet,delayed Release (dr/ec) (Aspirin) ..... 1 tablet by mouth once a day [facility] Cardiology: H is updated medication list for this problem includes: Levothyroxine 100 Mcg Tablet (Levothyroxine) ..... 1 tablet once a day [facility]: H is updated medication list for this problem includes: Ozempic 1 Mg/dose (4 Mg/3 Ml) Pen Injector (Semaglutide) ..... 1 mg subcutaneously once a week Farxiga 10 Mg Tablet (Dapagliflozin) Metformin 750 Mg Tablet Extended Release 24 Hr (Metformin) ..... 3 twice a day Losartan-hydrochlorothiazide 100-25 Mg Tablet (Losartan-hydrochlorothiazide) ..... 1 tablet once a day Aspirin 81 Mg Tablet,delayed Release (dr/ec) (Aspirin) ..... 1 tablet by mouth once a day Alfredo Ahmedzai Cardiology Alfredo Ahmedzai Telehealth Alfredo Ahmedzai Telehealth Alfredo Ahmedzai Telehealth Alfredo Ahmedzai Telehealth Alfredo Ahmedzai Telehealth Alfredo Ahmedzai Telehealth Alfredo Ahmedzai Telehealth Alfredo Ahmedzai Cardiology Alfredo Ahmedzai Cardiology Alfredo Ahmedzai Cardiology Alfredo Ahmedzai Cardiology Alfredo Ahmedzai Cardiology Alfredo Ahmedzai Cardiology Alfredo Ahmedzai Cardiology Alfredo Ahmedzai Telehealth Alfredo Ahmedzai Telehealth Alfredo Ahmedzai Telehealth Alfredo Ahmedzai Telehealth Alfredo Ahmedzai Telehealth Alfredo Ahmedzai Cardiology Marco Swain MD Cardiology Marco Swain MD Cardiology Marco Swani MD Cardiology Marco Swani MD Cardiology: H is updated medication list for this problem includes: Crestor 20 Mg Tablet (Rosuvastatin) ..... 1 tablet once a day Kana Bedolla MD Cardiology Kana Bedolla MD Cardiology Kana Bedolla MD Cardiology Kana Bedolla MD Cardiology Kana Bedolla MD Cardiology: r educed by sabi Bedolla MD Cardiology: N EG EHCO AND UACR z ero maria dolores and neg cor cta, pos nuc , neg iron and pro bnp, c b 12 and folate ok, nml d, nmlpsa Kana Bedolla MD Cardiology: H is updated medication list for this problem includes: Acebutolol 200 Mg Capsule (Acebutolol) ..... Take 1 capsule twice daily Losartan-hydrochlorothiazide 100-25 Mg Tablet (Losartan-hydrochlorothiazide) ..... 1 tablet once a day Aspirin 81 Mg Tablet,delayed Release (dr/ec) (Aspirin) ..... 1 tablet by mouth once a day BP today: 128/72 P rior BP: 117/-1 (07/06/2021) Labs Reviewed: C reat: 0.91 (11/09/2016) Kana Bedolla MD Cardiology: 5 .5 Kana Bedolla MD Cardiology Kana Bedolla MD Cardiology Kana Bedolla MD Cardiology: H is updated medication list for this problem includes: Acebutolol 200 Mg Capsule (Acebutolol) ..... Take 1 capsule by mouth twice a day Losartan-hydrochlorothiazide 100-25 Mg Tablet (Losartan-hydrochlorothiazide) ..... 1 tablet once a day Aspirin 81 Mg Tablet,delayed Release (dr/ec) (Aspirin) ..... 1 tablet by mouth once a day BP today: 117/71 P rior BP: 138/80 (05/12/2020) Labs Reviewed: C reat: 0.91 (11/09/2016) Kaan Bedolla MD Cardiology Kana Bedolla MD Cardiology Kana Bedolla MD Cardiology Kana Bedolla MD Cardiology:reduced by sabi Bedolla MD Cardiology: N EG EHCO AND UACR z ero maria dolores and neg cor cta, neg iron and pro bnp, pos nuc b 12 and folate ok, nml d, nmlpsa Kana Bedolla MD Cardiology Kana Bedolla MD Cardiology Kana Bedolla MD Cardiology:5.5 Kana Bedolla MD Cardiology Follow up :patient recently had holter monitor, reviewed the results with him and he has not had any further palpitations. H is updated medication list for this problem includes: Acebutolol Caps 200mg (Acebutolol hcl) ..... Take 1 capsule twice a day Aspirin Adult Low Dose 81 Mg Oral Tablet Delayed Release (Aspirin) ..... One tab by mouth daily Ana Forman NP Cardiology: H is updated medication list for this problem includes: Acebutolol Hcl 200 Mg Oral Capsule (Acebutolol hcl) ..... Twiice a day Losartan Potassium-hctz 100-25 Mg Oral Tablet (Losartan potassium-hctz) ..... 1 tab once daily Aspirin Adult Low Dose 81 Mg Oral Tablet Delayed Release (Aspirin) ..... One tab by mouth daily BP today: 132/74 P rior BP: 121/68 (03/18/2019) Labs Reviewed: C reat: 0.91 (11/09/2016) Kaan Bedolla MD Cardiology:DESO NOT WANT RX Katie Bedolla MD Cardiology Kana Bedolla MD Cardiology Kana Bedolla MD Cardiology Kana Bedolla MD Cardiology:8.4 H is updated medication list for this problem includes: Losartan Potassium-hctz 100-25 Mg Oral Tablet (Losartan potassium-hctz) ..... 1 tab once daily Farxiga 10 Mg Oral Tablet (Dapagliflozin propanediol) ..... 1 tab once daily Aspirin Adult Low Dose 81 Mg Oral Tablet Delayed Release (Aspirin) ..... One tab by mouth daily Metformin Hcl Er 750 Mg Oral Tablet Extended Release 24 Hour (Metformin hcl) ..... 3 x per day Labs Reviewed: C reat: 0.91 (11/09/2016) Kana Bedolla MD Cardiology:1.7% BETT ER WITH ACEBUTETLOL % e very 4th beat, Kana Bedolla MD Cardiology:451 H is updated medication list for this problem includes: Vascepa 1 Gm Oral Capsule (Icosapent ethyl) ..... Two pills twice a day Crestor 20 Mg Oral Tablet (Rosuvastatin calcium) ..... One tab. daily Kana Bedolla MD Cardiology: H is updated medication list for this problem includes: Levothyroxine Sodium 100 Mcg Oral Tablet (Levothyroxine sodium) ..... One tab daily Kana Bedolla MD Cardiology:NEG EHCO AND UACR z ero maria dolores and neg cor cta, neg iron and pro bnp, pos nuc b 12 and folate ok, nml d, nmlpsa Kana Bedolla MD Cardiology: T he following medications were removed from the medication list: Carvedilol 12.5 Mg Oral Tablet (Carvedilol) ..... One tab twice a day Valsartan-hydrochlorothiazide 320-25 Mg Oral Tablet (Valsartan-hydrochlorothiazide) ..... One tab daily His updated medication list for this problem includes: Acebutolol Hcl 200 Mg Oral Capsule (Acebutolol hcl) ..... Twiice a day Losartan Potassium-hctz 100-25 Mg Oral Tablet (Losartan potassium-hctz) ..... 1 tab once daily Aspirin Adult Low Dose 81 Mg Oral Tablet Delayed Release (Aspirin) ..... One tab by mouth daily BP today: 121/68 P rior BP: 123/72 (10/12/2016) Labs Reviewed: C reat: 0.91 (11/09/2016) Kana Bedolla MD Cardiology Kana Bedolla MD Cardiology Kana Bedolla MD Cardiology:does nto want rx Katie Bedolla MD Cardiology Kana Bedolla MD Cardiology:zero maria dolores and neg cor cta, neg iron and pro bnp, pos nuc b 12 and folate ok, nml d, nmlpsa Kana Bedolla MD Cardiology:every 4th beat, august n eed ablastion Kana Bedolla MD Cardiology:did not w ant renal us H is updated medication list for this problem includes: Aspirin Adult Low Dose 81 Mg Oral Tbec (Aspirin) ..... One tab by mouth daily Carvedilol 12.5 Mg Tabs (Carvedilol) ..... One tab twice a day Valsartan-hydrochlorothiazide 320-25 Mg Oral Tabs (Valsartan-hydrochlorothiazide) ..... One tab daily BP today: 123/72 P rior BP: 124/60 (11/18/2015) Kana Bedolla MD Cardiology: H is updated [facility] [id number]|2024-09-16 01:24:00|2024-09-16 01:23:00|XMS_ITS|BKG DAEMON|External Medical Summaries|[id number]|" Data Portability Created on: September 16, 2024 Johan Ledezma .[id number] : [id number] Sex: Male Author [facility] Address [address] [place] [id number] Care Team Providers Care Perinatal Technician Name Role Phone CAMILA ESTRADA Primary Care Provider Unavailab le Assessment No assessment recorded. Plan of Treatment Reminders Order Date Submit Date Provider Last Modified By Organization Details Last Modified Time Details Appointments ANY 15 2024 09:00A RICH Owens Not available Not available Not available Lab vitamin B12 + folate, serum or blood 2023 025 [email or web address] [employer] [facility], [address], [place], [address], 04/21/2024 10:40:33 hepatic function panel, serum 2023 025 [email or web address] [facility], [address], [place], [address], 04/21/2024 10:40:32 CBC w/ auto diff 2023 025 [email or web address] [facility], [address], [place], [address], 04/21/2024 10:40:33 BMP, serum or plasma 2023 025 [email or web address] [facility], [address], [place], [address], 04/21/2024 10:40:33 lipid panel, serum 2023 025 [email or web address] [facility], [address], [place], [address], 04/21/2024 10:40:32 HbA1c (hemoglob in A1c), blood 2023 025 [email or web address] [facility], [address], [place], [address], 04/21/2024 10:40:33 TSH + free T4, serum 2023 025 [email or web address] [facility], [address], [place], [address], 04/21/2024 10:40:33 hepatic function panel, serum 2023 024 [email or web address] [facility], [address], [place], [address], 08/18/2024 10:47:45 CBC w/ auto diff 2023 024 [email or web address], [address], [place], [address], 08/18/2024 10:47:39 BMP, serum or plasma 2023 [facility] [employer] [facility] [facility], [address], [place], [address], 08/18/2024 10:47:25 lipid panel, serum 2023 [facility] [facility], [address], [place], [address], 08/18/2024 10:46:53 HbA1c (hemoglob in A1c), blood 2023 KELSEY [facility], [address], [place], [address], 07/23/2024 11:40:55 microalbu min/creat inine, mass ratio, urine - if it has NOT been 12 months since last psa, please cancel [facility], [address], [place], [address], 08/18/2024 10:47:05 PSA, serum or plasma 2023 024 [facility] [employer] [facility], [address], [place], [address], 08/18/2024 10:47:57 TSH + free T4, serum - if it has NOT been 12 months since last psa, please cancel order 2023 [facility], [address], [place], [address], 08/18/2024 10:46:34 Referral None recorded. Procedures colonosco py screening (PROC) 2023 [facility], [address], [id number], [place], [address], 08/29/2024 12:43:03 Surgeries None recorded. Imaging XR, hip, unilatera l, 2 or 3 view 2023 [facility], [address], [place], [address], 03/02/2024 09:03:20 MRI, lumbar spine, w/o contrast 2023 024 [facility], [address], [place], [address], 03/03/2024 11:08:03 Medication Orders cyclobenz aprine 10 mg tablet 2023 024 [id number], [address], [place], [address], 02/13/2024 16:08:56 prednison e 20 mg tablet 2023 024 [id number], [address], [place], [address], 02/19/2024 18:18:37 pantopraz ole 40 mg tablet,de layed release 2023 024 [email or web address] [id number], [address], [place], [address], 03/02/2024 11:09:33 zolpidem 10 mg tablet 2023 024 [facility] #[id number], [address], [place], [address], 10/31/2023 18:14:21 pantopraz ole 40 mg tablet,de layed release 2023 024 [email or web address] [facility]acy #[id number], [address], [place], [address], 02/06/2024 09:59:03 Patient TargetsNo targets recorded. Patient Instructions Encounter Date Encounter Id Patient Instructions Last Modified By Organization Details Last Modified Time 10/23/2023 [id number] A healthy lifestyle: care instructions Not available 11/03/2023 18:14:38 04/21/2024 [id number] A healthy lifestyle: care instructions Not available 04/21/2024 10:40:33 Reason for Referral None Reported. Results Created Date Observation Date Name Description Value Unit Range Abnormal Flag Note LastModifiedBy Organization Detail LastModifiedTime 03/02/2003/01/2024 XR, hip, unila teral , 2 or 3 view No observ ation record ed. [address], [place], [address], 03/03/2024 17:35:25 03/03/2003/01/2024 MRI, lumba r spine , w/o contr ast No observ ation record ed. [address], [place], [address], 03/04/2024 16:00:09 Result Notes None recorded. Problems Name Problem SNOMED Code Status Onset Date Resolution Date Notes Provider Name and Address Organization Details Recorded Time Long-term drug therapy Active 2023 RICH Cook Attn: Birgit juarez,[address] [place], [address], [place] [facility] 4 10:57:11 Chronic insomnia 806785970 Active 2023 RICH Cook Attn: Birgit juarez,[address] [place], [address] [facility] 4 10:57:12 Mixed anxiety and depressive disorder 831693548 Active 2023 RICH Cook Attn: Birgit juarez,[address] [place], [address], [place] [facility] 4 10:57:13 Gastroesoph ageal reflux disease without esophagitis 571022926 Active 2023 RICH Cook Attn: Accountin g,[address] [facility], [place], [address], [place] [facility] 4 10:57:14 Hypothyroid ism 82873683 Active 2023 RICH Cook Attn: Accountin g,[address] [facility], [place], [address], [place] [facility] 4 10:57:16 Hyperlipide caitlyn 29887254 Active 2023 RICH Cook Attn: Accountin g,[address] [facility], [place], [address], [place] [facility] 4 10:57:17 Benign essential hypertensio n 6058141 Active 2023 RICH Cook Attn: Accountin g,[address] [facility], [place], [address], [place] [facility] 4 10:57:18 Well controlled type 2 diabetes mellitus 020908072 Active 2023 RICH Cook Attn: Accountin g,[address] [facility], [place], [address], [place] [facility] 4 10:57:20 Body mass index 30+ - obesity 100725819 Active 2023 RICH Cook Attn: Accountin g,[address] [facility], [place], [address], [place] [facility] 4 18:14:29 Obesity 348427628 Active 2023 RICH Cook Attn: Accountin g,[address] [facility], [place], [address], [place] [facility] 4 18:14:34 Positive screening for depression on PHQ-9 (Patient Health Questionnai re 9) [id number] 00 Active 2023 RICH Cook Attn: Accountin g,[address] [facility], [place], [address], [place] [facility] 4 18:14:56 Pain of left hip joint 6359688992977 00 Active 2023 RICH Cook Attn: Birgit juarez,[address] [facility], [place], [address], [place] [facility] 4 11:11:39 Lumbar radiculopat hy 389690792 Active 2023 RICH Cook Attn: Birgit juarez,[address] [facility], [place], [address] [facility] 4 11:11:42 History of operative procedure on lumbar spinal structure 545480912 Active 2023 RICH Cook Attn: Birgit juarez,[address] [facility], [place], [address], [place] [facility] 4 11:11:43 Macrocytosi s 403175872 Active 2023 RICH Cook Attn: Birgit juarez,[address] [facility], [place], [address], [place] [facility] 4 11:02:39 Problem Notes None recorded. Procedures Surgical History Date Name Laterality Status Provider Name and Address Organization Details Recorded Time Eye Surgery completed Breana Gandara [place] [facility] 10/23/2023 10:28:39 Hernia Repair completed Breana Gandara MA [facility] 10/23/2023 10:28:51 Tonsillectomy completed Breana Gandara [place] [facility] 10/23/2023 10:28:58 Imaging Results Imaging Date Name Status LastModified by Organiz ation Details LastModified Time 2024 XR, hip, unilateral, 2 or 3 view completed [address] [place] [address], [address], 03/03/2024 17:35:25 2024 MRI, lumbar spine, w/o contrast completed [address], [place], [address], 03/04/2024 16:00:09 Procedure Notes None recorded. Medical Equipment None Reported. Allergies Allergen ID Allergen Name Allergen Category Reaction Reaction Severity Criticality Documentation Date Start Date Code Code System Note Provider Name and Address Organization Details Recorded Time [id number] Product containin g penicilli n (product) medicatio n Not available Not available Not available 10/23/2023 [id number] SNOMED A CHILD Breana Gandara MA [facility], [place] - [facility] 4 09:57:27 Medications Name Sig Start Date Stop Date Status Note LastModified by Organization Details LastModified Time cetirizine 5 mg-pseudoep hedrine ER 120 mg tablet,exte nded release,12h r TAKE 1 TABLET BY MOUTH TWICE DAILY NEEDED active Not Available Not Available No t Available cyclobenzap rine 10 mg tablet TAKE 1 TABLET BY MOUTH THREE TIMES A DAY NEEDED FOR LOW BACK PAIN active Not Available Not Available No t Available amoxicillin 500 mg capsule TAKE 2 CAPSULES BY MOUTH NOW THEN TAKE 1 CAPSULE BY MOUTH 3 TIMES A DAY UNTIL GONE 04/21 completed Not Available Not Available Not Available carvedilol 25 mg tablet Take 1 tablet twice a day by oral route. 2024 active Not Available Not Available Not Avai lable ketoconazol e 2 % shampoo active Not Available Not Available Not Available citalopram 40 mg tablet One tab p.o. daily 2024 active Not Available Not Available Not Avai lable alprazolam 1 mg tablet Take as needed by oral route for 30 days. 2023 active Not Available Not Available Not Avai lable prednisone 20 mg tablet TAKE 2 TABLETS BY MOUTH EVERY DAY FOR 5 DAYS 02/18 completed Not Available Not Available Not Available glimepiride 2 mg tablet TAKE 1 TABLET BY MOUTH TWICE DAILY WITH MEALS 02/05 completed Not Available Not Available Not Available glimepiride 1 mg tablet take 1 tab PO AM and 2 tabs PO with supper 2024 active Not Available Not Available Not Avai lable levothyroxi ne 100 mcg tablet Take 1 tablet every day by oral route. 2024 active Not Available Not Available Not Avai lable losartan 100 mg-hydrochl orothiazide 25 mg tablet TAKE 1 TABLET EVERY DAY BY ORAL ROUTE 2023 active Not Available Not Available Not Avai lable terbinafine HCl 250 mg tablet TAKE 1 TABLET BY MOUTH DAILY FOR 2 WEEKS active Not Available Not Available No t Available trazodone 100 mg tablet Take 1 tablet every day by oral route at bedtime. 2024 active Not Available Not Available Not Avai lable hydrocodone 7.5 mg-acetamin ophen 325 mg tablet TAKE 1 TABLET BY MOUTH EVERY 6 HOURS NEEDED 04/21 completed Not Available Not Available Not Available cephalexin 500 mg capsule TAKE 1 CAPSULE BY MOUTH TWICE A DAY 10/22 completed Not Available Not Available Not Available pantoprazol e 40 mg tablet,roseanna yed release TAKE 1 TABLET TWICE A DAY BY ORAL ROUTE 2023 active Not Available Not Available Not Avai lable clotrimazol e-betametha sone 1 %-0.05 % topical cream APPLY TO AFFECTED AREA OF ARM 2 TIMES PER DAY IN THE MORNING AND EVENING FOR 2 WEEKS active Not Available Not Available No t Available hydrochloro thiazide 12.5 mg capsule Take 1 capsule p.o. in addition to losartan hydrochlo rothiazid e combinati on tablet once daily on a p.r.n. basis only for increased swelling 2024 active Not Available Not Available Not Avai lable hydrocortis one 2.5 % topical cream active Not Available Not Available Not Available zolpidem 10 mg tablet Take 1 tablet as needed by oral route at bedtime. 10/30 completed Not Available Not Available Not Available methylpredn isolone 4 mg tablets in a dose pack FOLLOW PACKAGE DIRECTION S active Not Available Not Available No t Available ketoconazol e 2 % topical cream APPLY A THIN LAYER TO PATCH ON ARM TWICE DAILY FOR 3 WEEKS active Not Available Not Available No t Available metformin ER 500 mg tablet,exte nded release 24 hr TAKE ONE TABLET THREE TIMES DAILY BEFORE MEALS X 90 DAYS 10/22 completed Not Available Not Available Not Available metformin ER 750 mg tablet,exte nded release 24 hr TAKE 3 TABLETS BY MOUTH EVERY DAY active Not Available Not Available No t Available rosuvastati n 20 mg tablet TAKE 1 TABLET BY MOUTH DAILY 2023 active Not Available Not Available Not Avai lable eszopiclone 3 mg tablet TAKE 1 TABLET BY MOUTH EVERYDAY AT BEDTIME 04/21 completed Not Available Not Available Not Available levothyroxi ne 100 mcg capsule TAKE 1 TABLET EVERY DAY BY ORAL ROUTE 05/06 completed Not Available Not Available Not Available OneTouch Verio test strips CHECK BLOOD SUGAR TWICE DAILY active Not Available Not Available No t Available Farxiga 10 mg tablet TAKE 1 TABLET BY MOUTH EVERY DAY IN THE MORNING 2023 active Not Available Not Available Not Avai lable Ozempic 1 mg/dose (4 mg/3 mL) subcutaneou s pen injector Inject by subcutane ous route for 30 days. 2024 active Not Available Not Available Not Avai lable Vitals Date Recorded Body weight Respiratory rate Oxygen saturation Oxygen saturation in Arterial blood by Pulse oximetry Heart rate Body mass index (BMI) Body height Systolic blood pressure Diastolic blood pressure Provider Name and Address Organization Details Last Updated DateTime 4 619438. 04 g 20 /min 98 % 98 % 83 /min 36.9 kg/m2 177.8 cm 122 mm[Hg] 68 mm[Hg] Breana Gandara [place] - [facility] 4 10:04:26 Date Recorded Body height Body mass index (BMI) Body weight Respiratory rate Oxygen saturation Oxygen saturation in Arterial blood by Pulse oximetry Heart rate Systolic blood pressure Diastolic blood pressure Provider Name and Address Organization Details Last Updated DateTime 4 177.8 cm 37.9 kg/m2 954152. 39 g 20 /min 98 % 98 % 80 /min 132 mm[Hg] 80 mm[Hg] Breana Gandara [place] [facility] 4 15:47:36 Date Recorded Body height Body mass index (BMI) Body weight Oxygen saturation Oxygen saturation in Arterial blood by Pulse oximetry Heart rate Respiratory rate Provider Name and Address Organization Details Last Updated DateTime 4 177.8 cm 37.4 kg/m2 858764. 61 g 99 % 99 % 78 /min 20 /min Breana Gandara [place] [facility] 4 10:21:43 Date Recorded Systolic blood pressure Diastolic blood pressure Systolic blood pressure Diastolic blood pressure Provider Name and Address Organization Details Last Updated DateTime 04/21/2024 136 mm[Hg] 82 mm[Hg] 118 mm[Hg] 70 mm[Hg] RICH Cook Attn: [place], [address] , [facility] 10:40:03 Social History Question Answer Notes LastModified by Organizat ion Details LastModified Time Tobacco Smoking Status Never Smoker Breana Gandara MA [facility], [facility] 10/23/2023 10:02:52 Do You Have An Advance Directive? Yes Information not available 10/23/2023 Are You Blind Or Do You Have Difficulty Seeing? No Information not available 10/23/2023 What Is Your Level Of Caffeine Consumption? Moderate Coffee Am Information not available 10/23/2023 In The 14 Days Before Symptom Onset, Have You Had Close Contact With A Laboratory-confir med COVID-19 While That Case Was Ill? No Information not available 10/23/2023 In The 14 Days Before Symptom Onset, Have You Had Close Contact With A Person Who Is Under Investigation For COVID-19 While That Person Was Ill? No Information not available 10/23/2023 Have You Been To An Area Known To Be High Risk For COVID-19? No Information not available 10/23/2023 Are You Deaf Or Do You Have Serious Difficulty Hearing? No Information not available 10/23/2023 What Type Of Diet Are You Following? REGULAR Information not available 10/23/2023 Are There Any Guns Present In Your Home? No Information not available 10/23/2023 What Was The Date Of Your Most Recent Tobacco Screening? 04/21/2024 Information not available 04/21/2024 What Is Your Relationship Status? Information not available 10/23/2023 Do You Use Your Seat Belt Or Car Seat Routinely? Yes Information not available 10/23/2023 Do You Have Smoke And Carbon Monoxide Detectors In Your Home? Yes Information not available 10/23/2023 Do You Use Sunscreen Routinely? No Information not available 10/23/2023 Has Tobacco Cessation Counseling Been Provided? Yes Information not available 10/23/2023 On What Date Was Tobacco Cessation Counseling Provided? 04/21/2024 Information not available 04/21/2024 Sex: Male Functional Status Question Answer Note LastModified by Organizat ion Details LastModified Time Do you use any illicit or recreational drugs? No Information not available 10/23/2023 Do you or have you ever used any other forms of tobacco or nicotine? No Information not available 10/23/2023 What is your level of alcohol consumption? Occasional 2x4 beer a week Information not available 10/23/2023 Are you currently employed? Yes Information not available 10/23/2023 Are you able to care for yourself? Yes Information not available 10/23/2023 What is your exercise level? None Information not available 10/23/2023 Mental Status Question Answer Note LastModified by Organization D etails LastModified Time Do you feel stressed (tense, restless, nervous, or anxious, or unable to sleep at night)? [id number] Information not available 10/23/2023 Family History Relationship Description Onset Age of this Age Resolved Age Notes LastModified by Organization Details LastModified Time Mother Coronary arterioscler osis tcarterma Not available 2023 10:29:20 Mother Diabetes mellitus tcarterma Not available 2023 10:29:27 Mother Disorder of thyroid gland tcarterma Not available 2023 10:29:36 Mother Hypertensive disorder tcarterma Not available 2023 10:30:14 Mother Hypercholest erolemia tcarterma Not available 2023 10:30:20 Mother Migraine tcarterma Not availabl e 10/23/2023 10:30:26 Mother Myocardial infarction tcarterma Not available 10/22 10:30:33 Mother Malignant neoplasm of ovary tcarterma Not available 2023 10:30:39 Father Coronary arterioscler osis tcarterma Not available 2023 10:29:20 Father Disorder of thyroid gland tcarterma Not available 2023 10:29:36 Father Heart disease tcarterma Not available 2023 10:29:45 Father Hypertensive disorder tcarterma Not available 2023 10:30:14 Medical History Condition Response Coronary Artery Disease N Other N High Blood Pressure Y Atrial Fibrillation N Thyroid Problems Y Kidney or Bladder Problems Y GI Problems Y Depression Y COPD N Blood Clots N Skin Problems Y Anemia N Heart Attack (CA) N Diabetes Y Anxiety Disorder Y Muscle, Joint, or Bone Problems N Seizures/Epilepsy N Acid Reflux (GERD) Y Cancer N Stroke N Asthma N Allergies Y High Cholesterol Y Hepatitis N Liver Disease N Headaches Y Osteoporosis N Heart Failure N Immunizations Vaccine Type Date Status Note Provider Nam e and Address Organization Details Recorded Time Influenza, high-dose, quadrivalent, PF 02/05/2023 completed CHUYITA [place], [place] [facility] 02/13/2024 15:34:07 COVID-19, mRNA, LNP-S, PF, 100 mcg/0.5mL dose or 50 mcg/0.25mL dose 06/15/2020 completed CHUYITA [place] [facility] 02/13/2024 15:34:07 COVID-19, mRNA, LNP-S, PF, 100 mcg/0.5mL dose or 50 mcg/0.25mL dose 07/13/2020 CHUYITA [place], [place] [facility] 02/13/2024 15:34:07 COVID-19, mRNA, LNP-S, PF, 100 mcg/0.5mL dose or 50 mcg/0.25mL dose 03/10/2021 CHUYITA [place] [facility] 02/13/2024 15:34:07 COVID-19, mRNA, LNP-S, bivalent, PF, 50 mcg/0.5 mL or 25mcg/0.25 mL dose 02/21/2022 completed Breana Gandara [place], [place] [facility] 02/13/2024 15:34:07 COVID-19, mRNA, LNP-S, PF, 50 mcg/0.5 mL 02/05/2023 CHUYITA [place] [facility] 02/13/2024 15:34:07 Past Encounters Encounter ID Performer Location Encounter Start Date Encounter Closed Date Diagnosis/Indication Diagnosis SNOMED-CT Code Diagnosis ICD10 Code Diagnosis Note [id number] Johan Blanton MD [facility] [address] [place] [address] 10/23/2023 09:19:30 10/23/2023 11:07:36 Chronic insomnia 399203162 F51.04 Patient would like to retry Ambien 10 mg p.o. q.h.s.. He tried this remotely in the past and felt that it helped out better than anything else. He is aware not to use this at the exact same dosing time as alprazolam 1 mg daily should any sleepwalki ng or sleep eating or other adverse side effects of Ambien develop he will stop medication and notify us immediatel y. Well contr olled type 2 diabetes mellitus [id number] E11.9 Current A1c is 6.5%. Patient is stable on metformin ER 750 mg 3 tablets daily, as well as Farxiga 10 mg daily. Due for updated A1c and microalbum in urine lab in March Benign ess ential hypertension 3865297 I10 Patient is taking carvedilol 25 mg twice a day , along with losartan 100 mg/hydroch lorothiazi de 25 mg daily. Blood pressure is well controlled today on exam Hypothyroidism 52487830 E03.9 Patient is on levothyrox ine 100 mcg daily and due for repeat labs in March Gastroesop hageal reflux disease without esophagitis 845544494 K21.9 Stable on pantoprazo le 40 mg daily with refills given Hyperlipidemia 24751687 E78.5 Patient is stable on rosuvastat in 20 mg daily and due for next set of labs in March. Long-term drug therapy 390489157 Z79.899 Next labs of CBC, BMP and liver function panel are due in March Mixed anxi ety and depressive disorder 153824306 F41.8 Partially managed anxiety and depression on citalopram 40 mg daily and alprazolam 1 mg p.r.n. Body mass index 30+ - obesity 944112294 Z68.36 Screening for malignant neoplasm of prostate 300446541 Z12.5 Next PSA due in March for annual review Obesity 100658462 E66.8 discussed healthy diet, exercise, controllin g carbohydra alfonso and added sugars in the diet Positive s creening for depression on PHQ-9 (Patient Health Questionnaire 9) [id number] 62487 Z13.31 Patient scored 13 on screening today. He is already on citalopram therapy. Many of his symptoms are positive due to fatigue and sleep disturbanc es. Plans to retire in the near future which hopefully will solve many of these symptoms. [id number] Johan Blanton MD [facility] [employer] [address] [place] [address] 02/13/2024 15:25:12 02/13/2024 16:22:01 History of operative procedure on lumbar spinal structure 025682924 Z98.890 L4-5 fusion september 2017. notable pain , left low back, glut to left knee x 1 monthWith history of low back surgery and lumbar radiculopa thy spiking and staying consistent we will refer him for an updated MRI of the lumbar spine without contrast Lumbar radiculopathy 128 748938 M54.16 Start Flexeril 10 mg 3 times a day as needed for muscle relaxant and prednisone 40 mg daily for 5 days Pain of le ft hip joint [id number] 82095 M25.552 Check x-ray of the left hip joint for baseline evaluation Gastroesop hageal reflux disease without esophagitis 364998339 K21.9 Stable on pantoprazo le 40 mg daily with refills given [id number] Johan Blanton MD [facility] [employer] [address] [place] [address] 04/21/2024 10:01:36 04/21/2024 15:05:22 Well controlled type 2 diabetes mellitus 837920718 E11.9 Current A1c is 6.1%. Patient is stable on metformin ER 750 mg 3 tablets daily, as well as Farxiga 10 mg daily and Ozempic 1 mg weekly. Next labs due in September Benign ess ential hypertension 1741135 I10 Patient is taking carvedilol 25 mg twice a day , along with losartan 100 mg/hydroch lorothiazi de 25 mg daily. Blood pressure is well controlled today on exam Hyperlipidemia 12052775 E78.5 Patient is stable on rosuvastat in 20 mg daily and due for next set of labs in September Hypothyroidism 90463464 E03.9 Patient is on levothyrox ine 100 mcg daily Gastroesop hageal reflux disease without esophagitis 571102128 K21.9 Stable on pantoprazo le 40 mg daily Mixed anxi ety and depressive disorder 252524092 F41.8 Partially managed anxiety and depression on citalopram 40 mg daily and alprazolam 1 mg p.r.n. Chronic insomnia 3541979 04 F51.04 Currently stable on trazodone 100 mg p.o. q.h.s. Long-term drug therapy 106450434 Z79.899 CBC BMP and liver function due again in September Body mass index 30+ - obesity 684399503 Z68.37 BMI is 37.4 Obesity 818522134 E66.9 discussed healthy diet, exercise, controllin g carbohydra alfonso and added sugars in the diet Macrocytosis 902177059 D 75.89 MCV and MCH elevated on labs check a B12 and folate on next blood work Screening for malignant neoplasm of colon 177977217 Z12.11
--- OUTSIDE RECORDS SUMMARY | 2024-09-16 01:24 | XMS_ITS | Clinical Summary ---
Author Organization [facility] Address [address] [place] [address] Care Team Providers Care Fit Model Name Role Phone Unavailable Primary Care Provider Unavailabl e Source Comments [facility],non-owned Affiliates and Associated Physician Practices is amultiple site organization consisting of ambulatory clinics and hospital sitesin [place], [place] and [place]. This disclosure is being madepursuant to the Care Everywhere program and may not contain all information available regarding this patient. Last updated 18.[facility] Social History Tobacco Use Types Packs/Day Years Used Date Smoking Tobacco: Never Assessed Sex and Gender Information Value Date Recorded Sex Assigned at Not on file Legal Sex Male 6:15 AM [employer] Gender Identity Not on file Sexual Orientation Not on file Plan of Treatment Health Maintenance Due Date Last Done Comments COLOGUARD (AGES 45-75) - COL ON CA SCREENING 1954 COLON MONITORING 1954 COLONOSCOPY - COLON CA SCREENING 1954 CT COLONOGRAPHY - COLON CA SCREENING 1954 Colorectal Cancer Screening 1954 FIT - COLON CA SCREENING 1954 FLEX SIG - COLON CA SCREENING 1954 LIPID TESTING 1954 MEDICARE AWV 12 MONTHS 1954 HEPATITIS C SCREENING 02/25/1972 DTAP/TDAP/TD VACCINES (1 - Tdap) 1973 PNEUMOCOCCAL VACCINE 50+ (1 of 1 - PCV) 2004 ZOSTER VACCINE (1 of 2) 2004 COVID-19 VACCINE ( - 2023-2 5 season) 2023 DEPRESSION SCREENING 04/30/2024 INFLUENZA VACCINE (Season Ended) 2024 Respiratory Syncytial Virus (RSV) Vaccine Pt: or over 60 yrs (1 - 1-dose 75+ series) 2029 HEPATITIS B VACCINE Aged Out No longe r eligible based on patient's age to complete this topic HIB VACCINE Aged Out No longer eligi ble based on patient's age to complete this topic HPV VACCINE Aged Out No longer eligi ble based on patient's age to complete this topic MENINGOCOCCAL (Group B) VACC INE SHARED DECISION-MAKING Aged Out No longer eligibl e based on patient's age to complete this topic MENINGOCOCCAL GROUPS A/C/Y/W VACCINE Aged Out No longer eligible b ased on patient's age to complete this topic Insurance MEDICARE Member Subscriber Plan / Payer (Ef fective for All Dates) Name:Johan Ledezma Member ID:[id number] Relation to Subscriber:Self Name:Johan Ledezma Subscriber ID:[id number] Payer ID:Not on file Group ID:Not on file Type:Medicare Address: [address] MEDICARE Member Subscriber Plan / Payer (Ef fective for All Dates) Name:Johan Ledezma Member ID:[id number] Relation to Subscriber:Self Name:Johan Ledezma Subscriber ID:[id number] Payer ID:Not on file Group ID:Not on file Type:Medicare Address: [address]
--- OUTSIDE RECORDS SUMMARY | 2024-09-16 01:24 | XMS_ITS | Data Portability ---
Author Organization [facility], Main Office Address [address] [place] [address] Care Team Providers Care Stitch Marker Name Role Phone CAMILA ESTRADA Primary Care Provider CAMILA ESTRADA Referring Provider Assessment Encounter Date Assessment Date Assessment LastModified by Organization Details LastModified Time 06/25/2024 06/25/2024 69-year-old male presents for evaluation of his right ankle. He reports pain with a pop on the bottom of his foot which occurred about 2 weeks ago. She denies any acute injury he was just walking. He has worn custom orthotics, has not had any other treatments. He denies having any swelling or bruising. He has been able to weight bear. He currently rates pain as 3/10. Review of systems per patient questionnaire Physical exam: He has pes planus. Nonantalgic gait. No ecchymosis or bruising. He has some tenderness over the plantar fascia. No tenderness over the malleoli or other bony structures. No tenderness over the PT tendons or peroneals. X-rays reviewed, demonstrating pes planus, degenerative changes, calcification on the bottom of his foot in the area of the plantar fascia which could be a broken off bone spur Given his history and current complaints, he likely had a calcaneal spur which broke off which explains his pain over the plantar fascia. Should continue to use custom orthotics. He may continue the activities as tolerated. He inquired about getting a brace for the ankle and we discussed that he can use an ASO brace. He may continue using that and follow up as needed. We also discussed follow-up with [facility] if he had continued symptoms of that. He is in agreement with the plan. [email or web address] Not available 06/25/2024 23:58:48 08/26/2024 08/26/2024 This note is dictated and transcribed by Ela shoply Direct [employer]. Cut Press Operator variances may occur. Despite proofreading, typographical errors may occur. Occasional wrong-word or '[id number]' substitutions may have occurred due to the inherent limitations of voice recording. Read the chart carefully and recognize, using context, where substitutions have occurred. Not available 08/26/2024 15:17:58 Plan of Treatment Reminders Order Date Submit Date Provider Last Modified By Organization Details Last Modified Time Details Appointments None recorded. Lab lipid panel, serum 2022 023 [facility], [address], [place], [address], 3 16:28:53 hepatic function panel, serum 2022 023 [facility] [employer] [facility], [address], [place], [address], 3 16:28:56 CBC w/ auto diff 2022 023 [facility], [address], [place], [address], 3 16:28:57 BMP, serum or plasma 2022 023 [facility] [employer] [facility], [address], [place], [address], 3 16:28:54 microalbumi n/creatinin e, mass ratio, urine 2022 023 [facility], [address], [place], [address], 3 16:28:51 HbA1c (hemoglobin A1c), blood 2022 023 [facility], [address], [place], [address], 3 16:28:55 TSH + free T4, serum 2022 023 [facility] [facility], [address], [place], [address], 3 16:28:52 microalbumi n/creatinin e, mass ratio, urine 2022 023 [facility] [employer] [facility], [address], [place], [address], 3 16:28:47 HbA1c (hemoglobin A1c), blood 2022 023 [facility] [employer] [facility], [address], [place], [address], 3 16:28:49 CMP, serum or plasma 2022 023 [facility] [facility], [address], [place], [address], 3 16:28:51 lipid panel, serum 2022 023 [facility] [facility], [address], [place], [address], 3 16:28:50 TSH + free T4, serum 2022 023 [facility] [facility], [address], [place], [address], 3 16:28:50 T3, free, serum or plasma 2022 023 [facility] [facility], [address], [place], [address], 3 16:28:48 Referral None recorded. Procedures None recorded. Surgeries None recorded. Imaging XR, ankle 2024 025 [email or web address] [place], [address], [place], [address], 5 08:39:32 XR, foot 2024 025 [facility] [place], [address], [place], [address], 5 08:39:13 Medication Orders alprazolam 1 mg tablet 2022 023 [id number], [address], [place], [address], 3 17:44:11 hydrocodone 7.5 mg-acetamin ophen 325 mg tablet 2022 023 [id number], [address], [place], [address], 3 22:17:25 Ozempic 1 mg/dose (4 mg/3 mL) subcutaneou s pen injector 2022 023 [id number], [address], [place], [address], 3 20:46:14 Patient TargetsNo targets recorded. Patient Instructions Encounter Date Encounter Id Patient Instructions Last Modified By Organization Details Last Modified Time 05/11/2023 [id number] dementia rating scale-2* [facility] Not available 05/15/2023 08:48:14 multi-dimensiona l health assessment questionnaire* [facility] Not available 05/15/2023 08:48:09 care plan* [facility] Not available 05/15 08:48:03 advance care planning: care instructions Not available 05/14/2023 19:30:51 advance directiv es: care instructions Not available 05/14/2023 19:30:51 [place] Advance Directives Not available 05/14/2023 19:30:51 Personalized a [facility] Plan and Screening Recommendations Advance Directives - Do you have one? Advance Directives - Do we have your advance directive on file in your health record? Primary Prevention/Interven tion (prevents or decreases the chance of common diseases from occurring) Smoking Risk: Alcohol Misuse Screening: Weight: Physical activity: Nutrition: Fall Risk (screened today): Vaccines Pneumococcal: Influenza: Chronic Disease Risks Stroke: I have no recommendations Active diagnosis, Continue current treatment plan Heart Attack: I have no recommendations Act reyna diagnosis, Continue current treatment plan Clogging of the Arteries: I have no recommendations Act reyna diagnosis, Continue current treatment plan Diabetes: Active diagnosis, Continue current treatment plan Secondary Prevention/Interven tion (detects treatable diseases before they may cause symptoms, disability, or ) Prostate Cancer Screening: Colon Cancer Screening: Date Screening Last Performed: Eye Disease Screening: Dementia Risk: Depression Screening: Active diagnosis, Continue current treatment plan [email or web address] Not available 05/11/2023 14:15:52 08/26/2024 [id number] nonsteroidal anti-inflammatory drugs (nsaids): care instructions Not available 08/26/2024 15:20:08 Reason for Referral None Reported. Results Created Date Observation Date Name Description Value Unit Range Abnormal Flag Note LastModifiedBy Organization Detail LastModifiedTime 08/05/1908/05/2022 LIPID PANEL , STAND RADHA cholesterol, total 136 mg/dL <200 normal Not Available [facility] [address] [place] [place], [address], 08/05/2022 14:07:17 08/05/19 23 08/05/2022 LIPID PANEL , STAND RADHA HDL cholesterol 58 mg/dL > or = 40 normal Not Available [facility] [address] [place], [address], 08/05/2022 14:07:17 08/05/19 23 08/05/2022 LIPID PANEL , STAND RADHA triglyceride s 191 mg/dL <150 high Not Available [facility] [address] [place] [place], [address], 08/05/2022 14:07:17 08/05/19 23 08/05/2022 LIPID PANEL , STAND RADHA LDL-choleste rol 52 mg/dL _(maria dolores c) normal Refer ence range : <100 Bekah able range <100 mg/dL for prima ry preve ntion ; <70 mg/dL for patie nts with CHD or diabe tic patie nts with > or = 2 CHD risk facto rs. LDL-C is now calcu lated using the Joanne n-Hop kins calcu latio n, which is a valid ated novel metho d provi ding lynsey r accur acy than the Fried renato equat ion in the estim ation of LDL-C . Joanne velasco SS et al. SVEN. 2013; 310(1 9): 2061- 2068 (http ://ed ucati on.Photometics. com/f aq/FA Q164) Not Available [facility] [address] [place], [address], 08/05/2022 14:07:17 08/05/19 23 08/05/2022 LIPID PANEL , STAND RADHA chol/HDLC ratio 2.3 (calc ) <5.0 normal Not Available [facility] [address] [place], [address], 08/05/2022 14:07:17 08/05/19 23 08/05/2022 LIPID PANEL , STAND RADHA non HDL cholesterol 78 mg/dL _(maria dolores c) <130 normal For patie nts with diabe alfonso plus 1 major ASCVD risk facto r, treat ing to a non-H DL-C goal of <100 mg/dL (LDL- C of <70 mg/dL ) is consi manoj alexis c optio n. Not Available [facility] [address] [place], [address], 08/05/2022 14:07:17 08/05/19 23 08/05/2022 COMPR EHENS REYNA METAB OLIC PANEL glucose 109 mg/dL 65-99 high Fasti ng refer ence inter cathryn For someo ne witho ut known diabe alfonso, a gluco se value betwe en 100 and 125 mg/dL is consi stent with predi abete s and shoul d be confi rmed with a follo w-up test. Not Available [address] [address] [place], [address], 08/05/2022 14:07:18 08/05/19 23 08/05/2022 COMPR EHENS REYNA METAB OLIC PANEL urea nitrogen (BUN) 20 mg/dL 7-25 normal Not Available [facility] [address] [address] [place], [address], 08/05/2022 14:07:18 08/05/19 23 08/05/2022 COMPR EHENS REYNA METAB OLIC PANEL creatinine 0.85 mg/dL 0.70-1 .35 normal Not Available [address] [address] [place], [address], 08/05/2022 14:07:18 08/05/19 23 08/05/2022 COMPR EHENS REYNA METAB OLIC PANEL eGFR 95 mL/mi n/1.7 3m2 > or = 60 normal The eGFR is based on the CKD-E PI 2020 equat ion. To calcu late the new eGFR from a previ ous Creat inine or Cysta tin C resul t, go to https ://roland em.karen still/brandie tran s/ kdoqi /gfr% 5Fcal culat or Not Available [address] [address] [place], [address], 08/05/2022 14:07:18 08/05/19 23 08/05/2022 COMPR EHENS REYNA METAB OLIC PANEL BUN/creatini ne ratio NOT APPLIC ABLE (calc ) 6-22 Not Available [address] [address] [place], [address], 08/05/2022 14:07:18 08/05/19 23 08/05/2022 COMPR EHENS REYNA METAB OLIC PANEL sodium 135 mmol/ L 135-14 6 normal Not Available [address], [address], 08/05/2022 14:07:18 08/05/19 23 08/05/2022 COMPR EHENS REYNA METAB OLIC PANEL potassium 4.3 mmol/ L 3.5-5. 3 normal Not Available [address], [address], 08/05/2022 14:07:18 08/05/19 23 08/05/2022 COMPR EHENS REYNA METAB OLIC PANEL chloride 98 mmol/ L 98-110 normal Not Available [address], [address], 08/05/2022 14:07:18 08/05/19 23 08/05/2022 COMPR EHENS REYNA METAB OLIC PANEL carbon dioxide 29 mmol/ L 20-32 normal Not Available [address], [address], 08/05/2022 14:07:18 08/05/19 23 08/05/2022 COMPR EHENS REYNA METAB OLIC PANEL calcium 9.3 mg/dL 8.6-10 .3 normal Not Available [address], [address], 08/05/2022 14:07:18 08/05/19 23 08/05/2022 COMPR EHENS REYNA METAB OLIC PANEL protein, total 7.1 g/dL 6.1-8. 1 normal Not Available [address], [address], 08/05/2022 14:07:18 08/05/19 23 08/05/2022 COMPR EHENS REYNA METAB OLIC PANEL albumin 4.5 g/dL 3.6-5. 1 normal Not Available [address], [address], 08/05/2022 14:07:18 08/05/19 23 08/05/2022 COMPR EHENS REYNA METAB OLIC PANEL globulin 2.6 g/dL_ (calc ) 1.9-3. 7 normal Not Available [address], [address], 08/05/2022 14:07:18 08/05/19 23 08/05/2022 COMPR EHENS REYNA METAB OLIC PANEL albumin/glob ulin ratio 1.7 (calc ) 1.0-2. 5 normal Not Available [address], [address], 08/05/2022 14:07:18 08/05/19 23 08/05/2022 COMPR EHENS REYNA METAB OLIC PANEL bilirubin, total 1.3 mg/dL 0.2-1. 2 high Not Available [address], [address], 08/05/2022 14:07:18 08/05/19 23 08/05/2022 COMPR EHENS REYNA METAB OLIC PANEL alkaline phosphatase 54 U/L 35-144 normal Not Available [address], [place], [address], 08/05/2022 14:07:18 08/05/19 23 08/05/2022 COMPR EHENS REYNA METAB OLIC PANEL AST 19 U/L 10-35 normal Not Available [address], [address], 08/05/2022 14:07:18 08/05/19 23 08/05/2022 COMPR EHENS REYNA METAB OLIC PANEL ALT 22 U/L 9-46 normal Not Available [address], [address], 08/05/2022 14:07:18 08/05/19 23 08/05/2022 ALBUM IN, RANDO M URINE W/CRE ATINI NE creatinine, random urine 93 mg/dL 20-320 normal Not Available [address], [address], 08/05/2022 14:07:19 08/05/19 23 08/05/2022 ALBUM IN, RANDO M URINE W/CRE ATINI NE albumin, urine 0.8 mg/dL see note: normal Refer ence Range : Refer ence Range Not estab lishe d Not Available [address], [address], 08/05/2022 14:07:19 08/05/1908/05/2022 ALBUM IN, RANDO M URINE W/CRE ATINI NE albumin/crea tinine ratio, random urine 9 mcg/m g_cre at <30 normal The ADA defin es abnor malit ies in album in excre tion as follo ws: Album inuri a Categ ory Resul t (mcg/ mg creat inine ) Dayami l to Mildl y incre ased <30 Moder ately incre ased 30-29 9 Sever johana incre ased > OR = 300 The ADA recom mends that at least two of three speci mens colle cted withi n a 3-6 month perio d be abnor mal befor e consi min g a patie nt to be withi n a diagn ostic categ ory. Not Available [address], [address], 08/05/2022 14:07:19 08/05/1908/05/2022 T3, FREE T3, free 2.9 pg/mL 2.3-4. 2 normal Not Available [address], [address], 08/05/2022 14:07:19 08/05/19 23 08/05/2022 TSH+F REE T4 TSH 0.41 mIU/L 0.40-4 .50 normal Not Available [address] [place], [address], 08/05/2022 14:07:19 08/05/19 23 08/05/2022 TSH+F REE T4 T4, free 1.2 NG/dL 0.8-1. 8 normal Not Available [facility] [address] [address] [place], [address], 08/05/2022 14:07:19 08/05/19 23 08/05/2022 HEMOG LOBIN A1C hemoglobin A1C 5.5 %_of_ total _HGB <5.7 normal For the purpo se of scree yumiko for the prese nce of diabe alfonso: <5.7% Consi stent with the absen ce of diabe alfonso 5.7-6 .4% Consi stent with incre ased risk for diabe alfonso (pred iabet es) > or =6.5% Consi stent with diabe alfonso This assay resul t is consi stent with a decre ased risk of diabe alfonso. Curre ntly, no conse nsus exist s nas christy use of hemog lobin A1c for diagn osis of diabe alfonso in child sharif. Accor ding to Ameri can Diabe alfonso Assoc iatio n (ADA) guide lines , hemog lobin A1c <7.0% repre sents optim al contr ol in non-p regna nt diabe tic patie nts. Diffe rent metri cs may apply to speci fic patie nt popul ation s. Stand ards of Medic al Care in Diabe alfonso(A DA). Not Available [facility] [address] [address] [place], [address], 08/05/2022 14:07:20 10/17/19 23 10/17/2022 CBC (INCL UDES DIFF/ PLT) white blood cell count 9.0 thous and/u L 3.8-10 .8 normal Not Available [facility] [address] [address] [place], [address], 10/17/2022 07:31:58 10/17/1910/17/2022 CBC (INCL UDES DIFF/ PLT) red blood cell count 3.94 lasha on/uL 4.20-5 .80 low Not Available [address], [address], 10/17/2022 07:31:58 10/17/19 23 10/17/2022 CBC (INCL UDES DIFF/ PLT) hemoglobin 14.0 g/dL 13.2-1 7.1 normal Not Available [address], [address], 10/17/2022 07:31:58 10/17/19 23 10/17/2022 CBC (INCL UDES DIFF/ PLT) hematocrit 41.9 % 38.5-5 0.0 normal Not Available [address], [address], 10/17/2022 07:31:58 10/17/19 23 10/17/2022 CBC (INCL UDES DIFF/ PLT) MCV 106.3 fL 80.0-1 00.0 high Not Available [address], [address], 10/17/2022 07:31:58 10/17/19 23 10/17/2022 CBC (INCL UDES DIFF/ PLT) MCH 35.5 pg 27.0-3 3.0 high Not Available [address], [address], 10/17/2022 07:31:58 10/17/19 23 10/17/2022 CBC (INCL UDES DIFF/ PLT) MCHC 33.4 g/dL 32.0-3 6.0 normal Not Available [address], [address], 10/17/2022 07:31:58 10/17/19 23 10/17/2022 CBC (INCL UDES DIFF/ PLT) RDW 12.6 % 11.0-1 5.0 normal Not Available [address], [address], 10/17/2022 07:31:58 10/17/19 23 10/17/2022 CBC (INCL UDES DIFF/ PLT) platelet count 158 thous and/u L 140-40 0 normal Not Available [address], [address], 10/17/2022 07:31:58 10/17/19 23 10/17/2022 CBC (INCL UDES DIFF/ PLT) MPV 10.7 fL 7.5-12 .5 normal Not Available [address], [address], 10/17/2022 07:31:58 10/17/19 23 10/17/2022 CBC (INCL UDES DIFF/ PLT) absolute neutrophils 5391 cells /uL 1500-7 800 normal Not Available [address], [address], 10/17/2022 07:31:58 10/17/19 23 10/17/2022 CBC (INCL UDES DIFF/ PLT) absolute lymphocytes 2394 cells /uL 850-39 00 normal Not Available [address], [address], 10/17/2022 07:31:58 10/17/19 23 10/17/2022 CBC (INCL UDES DIFF/ PLT) absolute monocytes 1008 cells /uL 200-95 0 high Not Available [address], [address], 10/17/2022 07:31:58 10/17/19 23 10/17/2022 CBC (INCL UDES DIFF/ PLT) absolute eosinophils 153 cells /uL 15-500 normal Not Available [address], [address], 10/17/2022 07:31:58 10/17/19 23 10/17/2022 CBC (INCL UDES DIFF/ PLT) absolute basophils 54 cells /uL 0-200 normal Not Available [address], [address], 10/17/2022 07:31:58 10/17/19 23 10/17/2022 CBC (INCL UDES DIFF/ PLT) neutrophils 59.9 % normal Not Available [address], [address], 10/17/2022 07:31:58 10/17/19 23 10/17/2022 CBC (INCL UDES DIFF/ PLT) lymphocytes 26.6 % normal Not Available [address], [address], 10/17/2022 07:31:58 10/17/19 23 10/17/2022 CBC (INCL UDES DIFF/ PLT) monocytes 11.2 % normal Not Available [address], [address], 10/17/2022 07:31:58 10/17/19 23 10/17/2022 CBC (INCL UDES DIFF/ PLT) eosinophils 1.7 % normal Not Available [address], [address], 10/17/2022 07:31:58 10/17/19 23 10/17/2022 CBC (INCL UDES DIFF/ PLT) basophils 0.6 % normal Not Available [address], [address], 10/17/2022 07:31:58 10/17/19 23 10/17/2022 URINA LYSIS , COMPL ETE color YELLOW yellow normal Not Available [address], [address], 10/17/2022 07:32:00 10/17/19 23 10/17/2022 URINA LYSIS , COMPL ETE appearance CLEAR clear normal Not Available [address], [address], 10/17/2022 07:32:00 10/17/19 23 10/17/2022 URINA LYSIS , COMPL ETE specific gravity 1.023 1.001- 1.035 normal Not Available [address], [address], 10/17/2022 07:32:00 10/17/19 23 10/17/2022 URINA LYSIS , COMPL ETE pH 5.5 5.0-8. 0 normal Not Available [address], [address], 10/17/2022 07:32:00 10/17/19 23 10/17/2022 URINA LYSIS , COMPL ETE glucose 3+ negati ve abnormal Not Available [address], [address], 10/17/2022 07:32:00 10/17/19 23 10/17/2022 URINA LYSIS , COMPL ETE bilirubin NEGATI VE negati ve normal Not Available [address], [address], 10/17/2022 07:32:00 10/17/19 23 10/17/2022 URINA LYSIS , COMPL ETE ketones NEGATI VE negati ve normal Not Available [facility] [address], [address], 10/17/2022 07:32:00 10/17/19 23 10/17/2022 URINA LYSIS , COMPL ETE occult blood NEGATI VE negati ve normal Not Available [address], [address], 10/17/2022 07:32:00 10/17/19 23 10/17/2022 URINA LYSIS , COMPL ETE protein NEGATI VE negati ve normal Not Available [facility] [address] [place], [address], 10/17/2022 07:32:00 10/17/19 23 10/17/2022 URINA LYSIS , COMPL ETE nitrite NEGATI VE negati ve normal Not Available [address], [address], 10/17/2022 07:32:00 10/17/19 23 10/17/2022 URINA LYSIS , COMPL ETE leukocyte esterase NEGATI VE negati ve normal Not Available [address], [address], 10/17/2022 07:32:00 10/17/19 23 10/17/2022 URINA LYSIS , COMPL ETE WBC NONE SEEN /hpf < or = 5 normal Not Available [address], [address], 10/17/2022 07:32:00 10/17/19 23 10/17/2022 URINA LYSIS , COMPL ETE RBC NONE SEEN /hpf < or = 2 normal Not Available [address], [address], 10/17/2022 07:32:00 10/17/19 23 10/17/2022 URINA LYSIS , COMPL ETE squamous epithelial cells NONE SEEN /hpf < or = 5 normal Not Available [address], [address], 10/17/2022 07:32:00 10/17/19 23 10/17/2022 URINA LYSIS , COMPL ETE bacteria NONE SEEN /hpf none seen normal Not Available [address], [address], 10/17/2022 07:32:00 10/17/19 23 10/17/2022 URINA LYSIS , COMPL ETE hyaline cast NONE SEEN /lpf none seen normal Not Available [address], [address], 10/17/2022 07:32:00 10/17/19 23 10/17/2022 URINA LYSIS , COMPL ETE note This urine was amanda zed for the prese nce of WBC, RBC, bacte rock, casts , and other forme d eleme nts. Only those eleme nts seen were repor gianna. Not Available [facility] [address] [address] [place], [address], 10/17/2022 07:32:00 10/17/19 23 10/17/2022 PSA, TOTAL PSA, total 0.76 NG/mL < or = 4.00 normal The total PSA value from this assay syste m is stand ardiz ed again st the WHO stand radha. The test resul t will be appro ximat johana 20% lower when geoff red to the equim olar- stand ardiz ed total PSA (Springer man Coult er). Geoff rison of seria l PSA resul ts shoul d be inter prete d with this fact in mind. This test was perfo rmed using the Sieme ns chemi lumin escen t metho d. Value s obtai rosanne from diffe rent assay metho ds canno t be used inter orantes eably . PSA level s, regar dless of value , shoul d not be inter prete d as absol daniele evide nce of the prese nce or absen ce of disea se. Not Available [facility] [address] [address] [place], [address], 10/17/2022 07:32:01 04/13/20 23 04/14/2023 ALBUM IN, RANDO M URINE W/CRE ATINI NE creatinine, random urine 110 mg/dL 20-320 normal Not Available [facility] [address] [place], [address], 04/14/2023 16:28:51 04/13/20 23 04/14/2023 ALBUM IN, RANDO M URINE W/CRE ATINI NE albumin, urine 0.2 mg/dL see note: normal Refer ence Range : Refer ence Range Not estab lishe d Not Available [address], [address], 04/14/2023 16:28:51 04/13/20 23 04/14/2023 ALBUM IN, RANDO M URINE W/CRE ATINI NE albumin/crea tinine ratio, random urine 2 mcg/m g_cre at <30 normal The ADA defin es abnor malit ies in album in excre tion as follo ws: Album inuri a Categ ory Resul t (mcg/ mg creat inine ) Dayami l to Mildl y incre ased <30 Moder ately incre ased 30-29 9 Sever johana incre ased > OR = 300 The ADA recom mends that at least two of three speci mens colle cted withi n a 3-6 month perio d be abnor mal befor e consi min g a patie nt to be withi n a diagn ostic categ ory. Not Available [address], [address], 04/14/2023 16:28:51 04/13/20 23 04/14/2023 TSH+F REE T4 TSH 0.87 mIU/L 0.40-4 .50 normal Not Available [facility] [address] [place], [address], 04/14/2023 16:28:52 04/13/20 23 04/14/2023 TSH+F REE T4 T4, free 1.3 NG/dL 0.8-1. 8 normal Not Available [facility] [address] [place], [address], 04/14/2023 16:28:52 04/13/20 23 04/14/2023 LIPID PANEL (REFL ) cholesterol, total 124 mg/dL <200 normal Not Available [facility] [address] [place], [address], 04/14/2023 16:28:53 04/13/20 04/14/2023 LIPID PANEL (REFL ) HDL cholesterol 54 mg/dL > or = 40 normal Not Available [facility] [address] [place] [address], [address], 04/14/2023 16:28:53 04/13/20 23 04/14/2023 LIPID PANEL (REFL ) triglyceride s 153 mg/dL <150 high Not Available [facility] [address], [address], 04/14/2023 16:28:53 04/13/20 23 04/14/2023 LIPID PANEL (REFL ) LDL-choleste rol 46 mg/dL _(maria dolores c) normal Refer ence range : <100 Bekah able range <100 mg/dL for prima ry preve ntion ; <70 mg/dL for patie nts with CHD or diabe tic patie nts with > or = 2 CHD risk facto rs. LDL-C is now calcu lated using the Joanne velasco-Hop kins calcu chuck n, which is a valid ated novel metho d provi ding lynsey r accur acy than the Fried renato equat ion in the estim ation of LDL-C . Joanne velasco SS et al. SVEN. 2013; 310(1 9): 2061- 2068 (http ://ed ucati on.Qu Ronny PROFICIO. com/f aq/FA Q164) Not Available [facility] [address], [address], 04/14/2023 16:28:53 04/13/20 23 04/14/2023 LIPID PANEL (REFL ) chol/HDLC ratio 2.3 (calc ) <5.0 normal Not Available [facility] [address], [address], 04/14/2023 16:28:53 04/13/20 23 04/14/2023 LIPID PANEL (REFL ) non HDL cholesterol 70 mg/dL _(maria dolores c) <130 normal For patie nts with diabe alfonso plus 1 major ASCVD risk facto r, treat ing to a non-H DL-C goal of <100 mg/dL (LDL- C of <70 mg/dL ) is consi manoj crawford thera perasheeda goldstein optio n. Not Available [employer] [facility] [address] [place], [address], 04/14/2023 16:28:53 04/13/20 23 04/14/2023 BASIC METAB OLIC PANEL glucose 105 mg/dL 65-99 high Fasti ng refer ence inter cathryn For someo ne witho ut known diabe alfonso, a gluco s [id number]|2024-09-16 01:24:00|2024-09-16 01:23:00|XMS_ITS|BKG DAEMON|External Medical Summaries|[id number]|" Encounter Summary Created on: September 16, 2024 Johan Ledezma Sr. : 1955 Sex: Male Author Organization [facility] Address [address] [place] [address] Care Team Providers Care Stitch Marker Name Role Phone Oscar Ibanez MD Primary Care Provider [phone] Encounter Details Date Type Department Care Team (Latest Contact Info) Description 02/16/2005 Outpatient Historical [facility] Hudd[place], Johan Beavers MD [address] [place] [address] CALCULUS OF KIDNEY (Primary Dx) Social History Tobacco Use Types Packs/Day Years Used Date Smoking Tobacco: Never Assessed Sex and Gender Information Value Date Recorded Sex Assigned at Not on file Legal Sex Male 3:00 AM GENERAL I [employer] Gender Identity Not on file Sexual Orientation Not on file documented as of this encounter Plan of Treatment Not on file documented as of this encounter Visit Diagnoses Diagnosis Calculus of kidney- Primary documented in this encounter Care Teams Stitch Marker Relationship Specialty Start Date End Date Oscar Ibanez MD [address] [address] PCP - General 04/26/03 documented as of this encounter "
[2024-09-16 06:19] VITALS: BP 141/76; PULSE 81; RESP 18; TEMP 36.8; O2SAT 98; BMI 38.5
[2024-09-16] MEDS: LACTATED RINGERS 1,000 ML 150 ML IV CONT (06:31)
[2024-09-16 06:37] LABS: Glucose Point of Care 101 mg/dl (65-105)
--- NOTE | 2024-09-16 07:04 | WPDANESEPPF ---
Anes - Initial Pre Proc Eval Procedure: Operation Date: 09/16/24 07:30 Proposed Procedures p Screening Colonoscopy - Berlin Hall MD Date/Time: 09/16/24 07:04 Surgeon: Berlin Hall MD Pre Op Diagnosis: screening colon Patient Data Age: 69 Gender: M Height: 1.78 m Weight: 121.7 kg Last Vital Signs Temp 36.8 C 09/16/24 06:19 Pulse 81 09/16/24 06:19 Resp 18 09/16/24 06:19 BP 141/76 H 09/16/24 06:19 Pulse Ox 98 09/16/24 06:19 O2 Del Method Room Air 09/16/24 06:19 Allergies Allergy/AdvReac Type Severity Reaction Status Date / Time Penicillins AdvReac Unknown RASH Verified 09/16/24 06:17 CHILD-STATES TAKEN PENICILLIN DERIVATIVES W/O RXN Home Medications Medication Instructions Recorded Confirmed Type ascorbic acid (vitamin C) 100 mg 100 mg PO DAILY 12/11/22 09/16/24 History tablet (Vitamin C) aspirin 81 mg tablet 81 mg PO DAILY 12/11/22 09/16/24 History citalopram 20 mg tablet 20 mg PO DAILY 12/11/22 09/16/24 History dapagliflozin propanediol 10 mg 10 mg PO DAILY 12/11/22 09/16/24 History tablet (Farxiga) ferrous sulfate 325 mg (65 mg 325 mg PO DAILY 12/11/22 09/16/24 History iron) tablet glimepiride 1 mg tablet 1 mg PO DAILY PRN Hyperglycemia 12/11/22 09/05/24 History levothyroxine 100 mcg tablet 100 mcg PO DAILY 12/11/22 09/16/24 History losartan 100 1 tablet PO DAILY 12/11/22 09/16/24 History mg-hydrochlorothiazide 25 mg tablet magnesium 100 mg tablet 100 mg PO DAILY 12/11/22 09/16/24 History metformin 750 mg tablet,extended 750 mg PO TID 12/11/22 09/16/24 History release 24 hr multivitamin 1 tablet PO DAILY 12/11/22 09/16/24 History omega-3 fatty acids 1,000 mg PO BID 12/11/22 09/16/24 History pantoprazole 40 mg tablet,delayed 40 mg PO BID 12/11/22 09/16/24 History release rosuvastatin 20 mg tablet 20 mg PO DAILY 12/11/22 09/16/24 History semaglutide 1 mg/dose (4 mg/3 mL) 0.5 mg subcut WEEKLY 12/11/22 09/16/24 History subcutaneous pen injector (Ozempic) vitamin B complex 1 tablet PO DAILY 12/11/22 09/16/24 History vitamins A,C,Y-imce-svcrmg 2,148 2 tablet PO BID 12/11/22 09/16/24 History mcg-113 mg-45 mg-17.4 mg tablet (PreserVision AREDS) acebutolol 200 mg capsule 200 mg PO BID 12/18/22 09/05/24 History carvedilol 25 mg tablet 25 mg PO Q12H 09/16/24 09/16/24 History Laboratory Tests 09/16/24 06:35 POC Capillary Glucose 101 mg/dl (65-105) Patient hx anesthesia problems: none Family hx anesthesia problems: none Results Review: All pre-operative results and documents have been reviewed as part of the pre-operative evaluation. [facility] Past Medical History Medical History (Updated 09/15/24 @ 14:47 by Abdias Bardales DO) Anxiety Diverticulitis Hyperlipidemia Hypertension Frequent PVCs MARIUM on CPAP Obesity Surgical History Surgical History History of esophagogastroduodenoscopy (EGD) Social History Social History Smoking status: Never smoker Alcohol intake: never Substance use: never Substance use type: does not use Living arrangements: with family Spiritual care concerns: No Anes - Eval Final PreProcedure Day of Procedure 09/16/24 07:04 Patient weight: obese Heart: regular rate and rhythm Lungs: clear to auscultation Airway: Mallampati scale class II Neurological: alert and oriented Last oral intake: >/= 8 hours ASA classification: III Emergent: no Anesthetic plan: proceed Anesthesia type and monitoring: general GIVS and standard monitoring Results Review: All pre-operative results and documents have been reviewed as part of the pre-operative evaluation. Informed Consent: The patient's anesthetic plan and its attendant risks and benefits were discussed with the patient/family/POA. Questions were solicited and answers provided to the satisfaction of the patient/family/POA.
--- NOTE | 2024-09-16 07:24 | PM.IMHP ---
H&P: HPI History of Present Illness Date/Time: 09/16/24 07:24 Chief Complaint: screening colonoscopy Narrative: This is the patient's first colonoscopy. There are no GI symptoms and there is no family history of colorectal cancer. Review of Systems Review of Systems: All systems reviewed & are unremarkable except as noted in HPI and below PMFSH Past Medical History Medical History (Updated 09/16/24 @ 07:24 by Berlin Hall MD) Anxiety Diverticulitis Hyperlipidemia Hypertension Frequent PVCs MARIUM on CPAP Obesity Surgical History Surgical History History of esophagogastroduodenoscopy (EGD) Social History Social History Smoking status: Never smoker Alcohol intake: never Substance use: never Substance use type: does not use Living arrangements: with family Spiritual care concerns: No Meds Home Medications and Allergies Home Medications Medication Instructions Recorded Confirmed Type ascorbic acid (vitamin C) 100 mg 100 mg PO DAILY 12/11/22 09/16/24 History tablet (Vitamin C) aspirin 81 mg tablet 81 mg PO DAILY 12/11/22 09/16/24 History citalopram 20 mg tablet 20 mg PO DAILY 12/11/22 09/16/24 History dapagliflozin propanediol 10 mg 10 mg PO DAILY 12/11/22 09/16/24 History tablet (Farxiga) ferrous sulfate 325 mg (65 mg 325 mg PO DAILY 12/11/22 09/16/24 History iron) tablet glimepiride 1 mg tablet 1 mg PO DAILY PRN Hyperglycemia 12/11/22 09/05/24 History levothyroxine 100 mcg tablet 100 mcg PO DAILY 12/11/22 09/16/24 History losartan 100 1 tablet PO DAILY 12/11/22 09/16/24 History mg-hydrochlorothiazide 25 mg tablet magnesium 100 mg tablet 100 mg PO DAILY 12/11/22 09/16/24 History metformin 750 mg tablet,extended 750 mg PO TID 12/11/22 09/16/24 History release 24 hr multivitamin 1 tablet PO DAILY 12/11/22 09/16/24 History omega-3 fatty acids 1,000 mg PO BID 12/11/22 09/16/24 History pantoprazole 40 mg tablet,delayed 40 mg PO BID 12/11/22 09/16/24 History release rosuvastatin 20 mg tablet 20 mg PO DAILY 12/11/22 09/16/24 History semaglutide 1 mg/dose (4 mg/3 mL) 0.5 mg subcut WEEKLY 12/11/22 09/16/24 History subcutaneous pen injector (Ozempic) vitamin B complex 1 tablet PO DAILY 12/11/22 09/16/24 History vitamins A,C,Z-yfti-gwgawq 2,148 2 tablet PO BID 12/11/22 09/16/24 History mcg-113 mg-45 mg-17.4 mg tablet (PreserVision AREDS) acebutolol 200 mg capsule 200 mg PO BID 12/18/22 09/05/24 History carvedilol 25 mg tablet 25 mg PO Q12H 09/16/24 09/16/24 History Allergies Allergy/AdvReac Type Severity Reaction Status Date / Time Penicillins AdvReac Unknown RASH Verified 09/16/24 06:17 CHILD-STATES TAKEN PENICILLIN DERIVATIVES W/O RXN Vital Signs Vital Signs - 24 hr 09/16/24 06:19 Temperature 98.2 F Pulse Rate 81 Respiratory Rate 18 Blood Pressure 141/76 H Pulse Oximetry 98 Oxygen Delivery Room Air Exam Const: General: cooperative and healthy appearing Resp: Effort & Inspection: normal respiratory effort and able to speak in complete sentences Auscultation: clear to auscultation bilaterally Cardio: Rate: regular rate Rhythm: regular rhythm GI: Inspection: normal to inspection GI Palp: No No hepatosplenomegaly present Auscultation: normal bowel sounds Rectal Exam: deferred Skin: General skin exam: normal color Psych: Appearance: grossly normal Mental Status: mental status grossly normal Assessment and Plan Assessment and plan (1) Encounter for screening colonoscopy: Code(s): Z12.11 - Encounter for screening for malignant neoplasm of colon Status: Acute Assessment and Plan: The patient is deemed a good candidate for the procedure. Consent signed. Will proceed.
[2024-09-16 07:48] VITALS: BP 106/61; PULSE 78; RESP 24; O2SAT 94
[2024-09-16 07:58] VITALS: BP 109/62; PULSE 78; RESP 28; O2SAT 94
[2024-09-16 08:08] VITALS: BP 108/69; PULSE 76; RESP 24; O2SAT 98
== END 2024-09-16 08:18 | disposition home or self-care (01) ==
PROVIDERS: PCP Physician Assistant; Referring Provider Physician Assistant; Visit Provider Internal Medicine Gastroenterology
PROC: 0DJD8ZZ Inspection of Lower Intestinal Tract, Via Natural or Artificial Opening Endoscopic (ICD-10-PCS; CPT 45378; principal; 2024-09-16 07:30)
DX: Z12.11 Encounter for screening for malignant neoplasm of colon (principal); K57.30 Diverticulosis of large intestine without perforation or abscess without bleeding; E66.9 Obesity, unspecified; Z68.38 Body mass index [BMI] 38.0-38.9, adult; Z79.84 Long term (current) use of oral hypoglycemic drugs
CPT/HCPCS: G0121; 82948; J2003; J2704; J7120

== ENCOUNTER 2024-10-27 08:27 | Outpatient (CLI) | payer MEDICARE, SELFPAY ==
--- NOTE | ~2024-10-27 | XR_ITS ---
3 VIEWS LUMBAR SPINE Ordering provider: Cecily Hernandez, PAShaun History: . Other low back pain . Comparison: None. FINDINGS: VERTEBRAL BODIES:Postoperative changes at the level of L4-L5. Minimal spondylolisthesis at the level of L4-L5. No visible fracture or subluxation. Degenerative changes of the spine. DISK SPACES: Narrowing of the disc L3-L4, L4-L5 and L5-S1. Multilevel facet joint disease. SOFT TISSUES: Normal. IMPRESSION: No acute osseous abnormality lumbar spine. Multilevel degenerative disc disease. Reviewed, dictated and finalized at location A.
== END 2024-10-27 08:28 | disposition home or self-care (01) ==
PROVIDERS: PCP Physician Assistant; Visit Provider Physician Assistant
DX: M51.379 Other intervertebral disc degeneration, lumbosacral region without mention of lumbar back pain or lower extremity pain (principal)
CPT/HCPCS: 72100